=== PATIENT | male | born 1955 | race Caucasian/White ===

== ENCOUNTER → 2024-05-14 | Outpatient (CLI) | payer SELFPAY ==
[2024-05-14 15:09] LABS: Absolute Lymphocyte Count 1.56 X10^3/uL (0.83-4.51); Basophil# 0.03 X10^3/uL; Basophil% 0.5 % (0-1); Eosinophil# 0.13 X10^3/uL; Eosinophils% 2.1 % (0-5); Hematocrit 38.5 % (40-54); Hemoglobin 12.3 g/dL (13.0-16.5); Lymphocyte # 1.56 X10^3/ul (0.83-4.51); Lymphocyte % 24.8 % (19-41); Mean Corp Hgb Conc 31.9 g/dL (32-36); Mean Corpuscular Hgb 27.2 pg (27.0-32.0); Mean Corpuscular Volume 85.2 fL (80-94); Mean Platelet Vol. 10.6 fl (6.2-12.0); Monocyte# 0.58 X10^3/uL; Monocyte% 9.2 % (0-10); NRBC Flagged by Analyzer 0 % (0-5); Neutrophil # 3.97 X10^3/uL (2.7-7.7); Neutrophil % 63.2 % (47-70); Platelet Count 236 K/mm3 (150-450); RBC Distribution Width CV 14.7 % (11.6-14.6); Red Blood Count 4.52 M/mm3 (4.6-6.2); White Blood Count 6.3 K/mm3 (4.4-11.0)
[2024-05-14 15:19] LABS: Erythrocyte Sedimentation Rate 9 mm/hr (0-20)
[2024-05-14 18:03] LABS: CRP < 3.00 mg/L (0.0-3.0)
== END | disposition home or self-care (01) ==
PROVIDERS: PCP Physician Assistant; Referring Provider Specialist; Visit Provider Specialist
DX: T84.023A Instability of internal left knee prosthesis, initial encounter (principal); E11.9 Type 2 diabetes mellitus without complications; I10 Essential (primary) hypertension
CPT/HCPCS: 36415; 85025; 85652; 86140

== ENCOUNTER → 2024-05-16 | Outpatient (CLI) | payer SELFPAY ==
--- NOTE | 2024-05-16 09:15 | EKG12_ITS ---
Test Reason : PRE OP Blood Pressure : */* mmHG Vent. Rate : 64 BPM Atrial Rate : 64 BPM P-R Int : 200 ms QRS Dur : 138 ms QT Int : 446 ms P-R-T Axes : 9 88 37 degrees QTcB Int : 460 ms Normal sinus rhythm Right bundle branch block Abnormal ECG Confirmed by ANTONIO WU, CLARITA ([id number]), editor house organ YURI MORA ([id number]) on 05/16/2024 12:45:32 PM Referred By: Dedrick Taylor Confirmed By: CLARITA ALVAREZ MD
[2024-05-16 10:25] LABS: Basophil# 0.05 X10^3/uL; Basophil% 0.8 % (0-1); Eosinophil# 0.12 X10^3/uL; Eosinophils% 1.9 % (0-5); Hematocrit 38.7 % (40-54); Hemoglobin 12.4 g/dL (13.0-16.5); Lymphocyte % 21.6 % (19-41); Mean Corpuscular Hgb 27.2 pg (27.0-32.0); Mean Corpuscular Volume 84.9 fL (80-94); Mean Platelet Vol. 10.5 fl (6.2-12.0); Monocyte# 0.88 X10^3/uL; Monocyte% 13.6 % (0-10); NRBC Flagged by Analyzer 0 % (0-5); Neutrophil # 4.01 X10^3/uL (2.7-7.7); Neutrophil % 61.8 % (47-70); Platelet Count 243 K/mm3 (150-450); RBC Distribution Width CV 14.8 % (11.6-14.6); RBC Distribution Width SD 45.2 fl (35.1-43.9); Red Blood Count 4.56 M/mm3 (4.6-6.2); White Blood Count 6.5 K/mm3 (4.4-11.0)
[2024-05-16 11:05] LABS: Albumin, Serum 4.1 g/dL (3.4-4.8); Anion Gap 10 (5-15); BUN 19 mg/dL (4-19); Calcium,Total 8.9 mg/dL (7.6-11.0); Carbon Dioxide 24.5 mmol/L (21.0-32.0); Chloride 104 mmol/L (98-108); Creatinine, Serum 0.95 mg/dL (0.70-1.20); EST Glomerular Filtration Rate 88 (>60); Glucose 105 mg/dL (70-99); Sodium Level 138 mmol/L (133-145)
== END | disposition home or self-care (01) ==
LOC: PSN 09:14
PROVIDERS: PCP Physician Assistant; Referring Provider Specialist; Visit Provider Specialist
DX: T84.023A Instability of internal left knee prosthesis, initial encounter (principal)
CPT/HCPCS: 36415; 80048; 82040; 83036; 85025; 93005

== ENCOUNTER 2024-06-12 11:36 | Day surgery (SDC) | payer SELFPAY ==
[2024-06-12] VITALS (10 sets, daily range): BP systolic 138–168; BP diastolic 74–97; PULSE 60–72; RESP 16–18; TEMP 36.6–37.1; O2SAT 84–96; BMI 32.3
--- NOTE | 2024-06-12 11:30 | PCM.HP.BLA ---
History and Physical 06/12/24? [facility]? Abdoulaye Meek? : 1955 Sex: M? Age: 68 years? History and Physical [facility] Surgery: Left knee irrigation and debridement with revision left total knee arthroplasty with polyethylene exchange Surgery date: June 12, 2024 Surgeon: Dr. Dedrick Taylor Subjective? Dictating on a patient of Dedrick Taylor.? This is a 68-year-old male who recently underwent an outpatient left knee polyethylene exchange and lateral patellar facetectomy due to instability on May 29, [address] [facility].? Patient was overall doing very well.? This morning on June 12, 2024 he was walking out to his chicken coup without ambulatory assistance when he tripped on a wire falling forward landing on his left knee.? Patient fell into the chicken coup.? The proximal knee incision dehisced and patient called into our office.? He was seen this morning due to the wound dehiscence.? Patient was doing very well with 0/10 pain.? He was using occasional Tylenol and still using his meloxicam.? He had already finished physical therapy and was doing home exercises.? Patient has medical history pertinent for type 2 diabetes mellitus, hypertension, sleep apnea, anxiety/depression.? There is been no change in medical history since his last surgery.? No recent chest pain or shortness of breath.? He denies past history of DVT or pulmonary embolism.? He is still currently taking the aspirin postoperatively for DVT prophylaxis.? Patient's initial left total knee arthroplasty was at an outside institution in 2016.? Patient has had prior clearance from the first surgery by [facility].? Recent A1c was 6.0. ? Current Meds: Doxycycline Hyclate 100 mg 1 tablet by mouth twice a day, Cephalexin 500 mg 1 tablet by mouth three times a day, Meloxicam 7.5 mg 1 tablet by mouth twice a day, Escitalopram Oxalate 20 mg 1 by mouth every day, Metformin HCL 500 mg 1 po qdaily, Diltiazem HCL ER 240 mg daily, Multi Vitamin? take one(1) tablet daily., Clorophyll? daily, Vitamin D 50 mcg (1999) 1 by mouth 5 days a week, Aspirin 81 81 mg 1 pill 2x/day by mouth Allergies: NKDA ? Advance Care Plan: No Advance Directives Effective Date: 05/14/2024 Past Medical History: Medical Problems: Diabetes, Hard of Hearing, High Blood Pressure, Sleep Apnea, Depression, anxiety Accidents: fall - (06/12/2024) fell on left total knee arthroplasty opened the incision Surgical Hx: Hernia Repair - 1985 Carpal Tunnel Release LT, Carpal Tunnel Release RT Knee Replacement Lt - 2015 Knee Replacement Rt - 2015 LT Knee Poly Exchange - (05/29/2024) SAW @ [facility] Anesthesia Complications: None Assistive Devices: Cpap, Dentures, Glasses Reviewed and updated - 06/12/2024 at 10:06 am by Kesha Mckeon Family History: Mother: Cancer. Children:9 Brother 1: Cancer. Sister 1: Cancer, High Blood Pressure. Reviewed, no changes - 06/12/2024 at 9:55 am by Britni Darling Social History: Marital: .Occupation: chef.Work Status: Currently Working.Hand Dominance: Left-handed. Personal Habits:? Cigarette Use: Never Smoked Cigarettes.Smokeless Tobacco: Never Used Smokeless Tobacco.E-Cigarette Use: Never used.Alcohol: Denies use.Drug Use: Denies Use.Enjoy Exercising: Daily. Reviewed, no changes - 06/12/2024 at 9:55 am by Britni Darling BMI outside normal limits? YES? NO Patient was counseled and given education for nutritional guidance today or during this calendar year YES? NO? N/A d/t pt unable to stand, in hospice, or under the age of 18 Date: 06/12/2024 Was the patient queried about tobacco behavior? Yes? No Does the patient currently use tobacco? Tobacco Use: Patient has never smoked.Cigarette Use: Never Smoked Cigarettes.Smokeless Tobacco: Never Used Smokeless Tobacco.E-Cigarette Use: Never used. Was the patient counseled about tobacco cessation??? Yes? No Review Of Systems: Constitutional: Denies change in appetite, fever and weight change. Cardiovasular: Denies chest pain, heart murmur and irregular heartbeat. Respiratory: Denies cough, pneumonia, shortness of breath, tuberculosis and wheezing. Gastrointestinal: Denies constipation, diarrhea, heartburn, nausea, rectal itching, bloody stools and vomiting. Musculoskeletal: Reports leg swelling and pain, but denies trouble walking and weakness. Skin: Denies Raynaud's, history of shingles and tattoo. Neurological: Denies ambulatory dysfunction, dizziness, numbness/tingling and tremor. Psychiatric: Denies anxiety, insomnia and stress. Hematologic/Lymphatic: Denies anemia, bleeding/bruising tendency and past transfusion. Reviewed, no changes - 06/12/2024 at 9:55 am by Britni Darling ? PRE-OP EXAM: General appearance: NORMAL? Other: Eyes: Conjunctivae and lids:? NORMAL?? Pupils: ERR Ears, Nose, Mouth, and Throat:? NORMAL?? Other: Inspection of lips, teeth and gums:? NORMAL??? Other: Neck: Examination of neck: no masses noted. Respiratory: Assessment of respiratory effort:? NORMAL??? Other: ? Auscultation of lungs: clear to auscultation no wheezes, rhonchi or rales. Cardiovascular:? Auscultation of heart: regular rate and rhythm, no murmurs, gallops or rubs. SDOH completed?? Yes??? No? N/A under the age of 18, refused, or already completed. SDOH with positive findings??? Yes??? No?? Pt. education given Physical Exam: Ht: 70 5'10 Wt: 232lb Wt Prior: 236lb as of 05/23/24 Wt Dif: -4lb Wt k.235 Wt kg Prior: 107.050 as of 05/23/24 Wt kg Dif: -1.815 BMI: 33.3 BP: 138/86 Pulse: 68 T: 97.6 tympanically T: 36.4C Pain Level: 0 O2SatR: 96 KNEE: GAIT:? Patient is walking with limping gait with use of walker INSPECTION/PALPATION:? On exam of the incision there is wound dehiscence involving 6 cm of the proximal incision.? Remaining salty in the distal two thirds are in place. ROM: Deferred due to the wound dehiscence CALF:? Negative homans sign bilaterally NEURO:? Sensation intact to saphenous, sural, deep/superficial peroneal, and tibial nerve distribution.? Neurovascularly intact. Imaging/Diagnostics: ?? ? Assessment #1: Hx T81.31xA Disruption of external operation (surgical) wound, not elsewhere classified, initial encounter Care Plan:? Therapy? :? Physical Therapy: Eval&Treat/Modalities Assessment #2: Hx T84.023D Instability of internal left knee prosthesis, subsequent encounter Care Plan:? Assessment #3: Hx Z96.652 Presence of left artificial knee joint Care Plan:? Therapy? :? Physical Therapy: Eval&Treat/Modalities Assessment #4: Hx Z47.1 Aftercare following joint replacement surgery Care Plan:? Therapy? :? Physical Therapy: Eval&Treat/Modalities Assessment #5: Hx M17.12 Unilateral primary osteoarthritis, left knee Care Plan:? Assessment #6: Hx E11.9 Type 2 diabetes mellitus without complications Care Plan:? Recommendations:? Diabetes can adversely affect the outcome of all orthopaedic surgeries.? This can also impact bone, soft tissue, ligaments and tendon healing.? It is recommended that a hemoglobin A1C be 7.5? or less for a good outcome.? ? Assessment #7: Hx I10 Essential (primary) hypertension Care Plan:? Recommendations:? Patient was explained that poorly controlled elevated blood pressure, hypertension, can lead to damage to the heart, brain, kidneys, and or eyes.? Hypertension can also damage arteries decreasing blood flow to the extremities, leading to delayed fracture healing and or recovery from tendon or ligament injuries.? Importance of proper blood pressure control and monitoring explained.? Recommended follow-up with their primary care physician as needed.? Blood pressure goal is less than 120/80. Blood pressure medication should be taken routinely including the morning of surgery unless otherwise instructed by their physician.? Patient's with hypertension are at increased risk of using anti-inflammatory medication such as Motrin or Aleve increasing the risk of heart attack or strokes.?? ? Assessment #8: Hx E66.9 Obesity, unspecified Care Plan:? Recommendations:? I discussed with the patient today that obesity has detrimental effects on their orthopaedic disease including an increased load on their joints. We discussed that a weight loss program including both diet and exercise is essential not only to improve their joint health, but their overall health. Such weight loss and exercise will also be beneficial in the face of possible future surgical interventions. Assessment #9: Hx Z71.3 Dietary counseling and surveillance Care Plan:? Assessment #10: Hx Z68.33 Body mass index [BMI] 33.0-33.9, adult Care Plan:? Recommendations:? BMI reviewed: BMI results were discussed with patient.? Patient given options for nutritional counseling.? Impression: 1.? Left knee postsurgical wound dehiscence 2.? Status post left revision total knee arthroplasty with polyethylene exchange 3.? Type 2 diabetes mellitus: Last A1c 6.0 4.? Hypertension 5.? Sleep apnea 6.? Anxiety/depression 7.? Obesity with BMI 33.3 Plan: Dr. Dedrick Taylor and myself did discuss and review with the patient all treatment options including surgical versus nonsurgical options.? I will continue plan established by Dr. Dedrick Taylor.? Due to the acute wound dehiscence we will need to take patient back in for surgery today for irrigation and debridement with polyethylene exchange.? Patient states he last ate at 7:30 AM this morning.? He was advised not to eat or drink the rest of the day.? Patient does wish to proceed with the above-stated procedure.? Potential risks, benefits, and complications of the procedure were discussed in detail including but not limited to , infection, nerve and blood vessel damage, persistent pain, numbness, tingling, paresthesias, blood clot, pulmonary embolism, and requirement for possible further surgery.? The patient expressed full understanding and has no further questions for the doctor.? Patient does agree to proceed with the above-stated procedure and has signed the surgery consent form. The left knee was cleansed with sterile saline.? Compressive Valente wrap with multiple ABDs were placed over the left knee.? He was advised not to do any bending of the left knee.? He will use the walker and weight-bear as tolerate.? Patient will meet with our packing machine inspector.? Plan will be to send the patient over to the hospital immediately after our visit today.? We will repeat lab work prior to surgery.? Plan will be for patient to go home today after surgery.? Patient has all medications from the initial surgery including oxycodone, Tylenol, meloxicam, Zofran, aspirin.? Patient will resume the aspirin tomorrow 81 mg twice daily for 4 weeks postoperatively for DVT prophylaxis. POST-OP MEDICATION PLAN: Pain Medications: Patient will continue with above pain medications including Tylenol, meloxicam, and oxycodone as needed postoperatively.? Patient will be called in to antibiotics which he will take for 2 weeks postoperatively.? The first antibiotic patient will use doxycycline 100 mg take twice daily for 2 weeks postoperatively.? Patient was advised and potential side effects including hypersensitivity to the sunlight and should take appropriate precaution.? The second antibiotic will be cephalexin 500 mg 3 times daily for 2 weeks postoperatively.? Patient was advised to use [id number] probiotic while on these antibiotics.? We discussed the potential for abdominal discomfort.? Recommend probiotic with yogurt as well.? They voiced understanding and agreement.? Patient will be weightbearing as tolerated with a walker postoperatively.? We will have him resume formal physical therapy next week on June 16, 2024. DVT Prophylaxis Plan:? Aspirin 81 mg twice daily for 4 weeks postoperatively.? Denies past history of DVT or pulmonary embolism This dictation was created using voice recognition software. Phonetic and/or grammatical errors may exist. ?
[2024-06-12] MEDS: Lactated Ringers 1,000 ML 999 ML IV (12:15)
[2024-06-12] MEDS: Acetaminophen 500 MG Tablet 1000 MG PO (12:47)
[2024-06-12] MEDS: Celecoxib 200 MG Capsule 400 MG PO (12:48)
[2024-06-12] MEDS: Gabapentin 600 MG Tablet PO (12:48)
[2024-06-12] MEDS: Lactated Ringers 1,000 ML 75 ML IV (12:52)
--- NOTE | 2024-06-12 13:43 | PRE.ANES_ITS ---
ASA Classification* ASA Classification ASA Classification: 3 and E Assessment & Plan Anesthesia* Anesthesia Assessment Anesthesia Assessment: Discussed sedation and/or anesthesia options, risks, benefits, and alternatives with patient/parents/legal guardian/POA. Questions invited. The patient/parents/legal guardian/POA seems to understand and agrees to proceed with anesthesia plan. Reviewed the physical assessment, medical history, allergy history and patient home medications list prior to surgery/procedure/anesthetic and documented any changes. Performed airway and anesthesia risk assessments. Anesthesia Type Anesthesia Type: General History Source History Obtained from:: Patient and Chart Anesthesia Focused Assessment* Temperature: 98.8 F Pulse Rate: 60 Blood Pressure: 142/74 Respiratory Rate: 18 Pulse Ox: 96 Oxygen Delivery Method: Room Air Airway Assessment Mouth opens: >3 cm Mallampati Score: III Teeth Condition: Missing (Missing couple teeth on the bottom. Rest are tight.) and Partial (Patient has upper partial. It will be removed prior to surgery.) Neck Range of motion (ROM): Limited ROM (Slight decrease in extension) Focused Labs Anesthesia Preop lab: CBC WBC 6.5 K/mm3 (4.4-11.0) 05/16/24 09:05/16/24 RBC 4.56 M/mm3 (4.6-6.2) L 05/16/24 09:05/16/24 Hgb 12.4 g/dL (13.0-16.5) L 05/16/24 09: 5 Hct 38.7 % (40-54) L 05/16/24 09:05/16/24 Plt Count 243 K/mm3 (150-450) 05/16/24 09:05/16/24 CHEMISTRY Potassium 4.0 mmol/L (3.3-5.1) 05/16/24 09:05/16/24 Sodium 138 mmol/L (133-145) 05/16/24 09:05/16/24 BUN 19 mg/dL (4-19) 05/16/24 09:05/16/24 Creatinine 0.95 mg/dL (0.70-1.20) 05/16/24 09:05/16/24 Glucose 105 mg/dL (70-99) H 05/16/24 09:05/16/24 COAG Pre-Assessment Diagnosis/Proposed Procedure Planned Operative Procedure(s): LEFT KNEE IRRIGATION AND DEBRIDEMENT WITH REVISION LEFT TOTAL KNEE ARTHOPLASTY WITH POLYETHYLENE EXCHANGE Anesthesia History Anesthesia History - technical applications scientist: Anesthesia History - technical applications scientist Hx Hospitalization No 06/12/24 12:24 Any Problems With Anesthesia No 06/12/24 12:24 Cholinesterase deficiency No 06/12/24 12:24 You/Your Family Experience No 06/12/24 12:24 fever (hyperthermia) with Relationship Recent Exposure to Contagious No 06/12/24 12:34 Disease Does patient have nerve No 06/12/24 12:24 stimulator Patient instructed to have device shut off --Does patient have Pacemaker No 06/12/24 12:34 or ICD? When Was Last Pacemaker Check QUESTION #4 FULL TEXT: You/Your Family Experience fever (hyperthermia) with Anesthesia Last Oral Intake Last Oral intake: Last Oral Intake NPO since 07:30 06/12/24 12:34 Meds taken in AM with sips of Yes 06/12/24 12:34 water? Meds patient instructed to take am of surgery Any additional information?: Yes NPO since: 07:30 (Patient had woodward and eggs at 7:30 AM for breakfast.) Meds taken in AM with sips of water?: Yes PONV PONV - technical applications scientist: PONV - technical applications scientist Female No 06/12/24 12:24 HX of Motion Sickness No 06/12/24 12:24 HX of N/V After Surgery No 06/12/24 12:24 Non-Smoker Yes 06/12/24 12:24 Duration of Surgery greater Yes 06/12/24 12:24 than 60 minutes Number of Risk Factors 2 06/12/24 12:24 PONV Score Moderate Risk 06/12/24 12:24 Height & Weight Height & Weight: Anesthesia: Height & Weight Height 5 ft 11 in 06/12/24 12:34 Weight: 105 kg 06/12/24 12:34 Body Mass Index (BMI) 32.3 06/12/24 12:34 Respiratory Assessment Respiratory Assessment - technical applications scientist: Respiratory Tract Infection Hx - technical applications scientist Hx Respiratory Tract Infection No 06/12/24 12:24 STOP Sleep Apnea STOP Sleep Apnea - technical applications scientist: STOP Sleep Apnea - technical applications scientist Hx Hypertension Yes 06/12/24 12:24 Hx Sleep Apnea Yes 06/12/24 12:24 CPAP Yes 06/12/24 12:24 BIPAP No 06/12/24 12:24 Do you snore loudly (louder than talking or can be heard Do you often feel tired/ fatigued/ sleepy during daytime? Has anyone observed you stop breathing during sleep? STOP Results Positive 06/12/24 12:24 QUESTION #5 FULL TEXT : Do you snore loudly (louder than talking or can be heard through closed doors)? Tobacco Use History Tobacco Use History - technical applications scientist: Tobacco Use History - technical applications scientist Tobacco Use Smoking Status Never smoker 06/12/24 12:24 Hx Tobacco Use No 06/12/24 12:24 Years Smoking Packs Smoked per Day Smoking Cessation Date was within the last 15 years Hx Smoking Cessation Date Hx Smoking Cessation Counseling Hematologic Medial History Hematologic Hx - technical applications scientist: Hematologic Medical Hx - workshop manager Hx of Blood Transfusion No 06/12/24 12:24 Hx of Transfusion in last 3 No 06/12/24 12:24 Months Date of Last Transfusion (if within last 3 months) Ever experience any problems No 06/12/24 12:24 with transfusion(s)? Specify any problems Hx of Preganancy in last 3 N/A 06/12/24 12:24 Months Nurse Filling Out Transfusion [id number] 06/12/24 12:24 & Questions: Date: 06/12/24 06/12/24 12:24 Time: 12:28 06/12/24 12:24 Patient unable to answer at this time (ie. confused, unrespo /Reproduction History /Reproductive History - technical applications scientist: /Reproductive Hx- technical applications scientist Hx Now No 06/12/24 12:24 Gestational Age (in weeks): EDC: Hx Hx Para Hx Section SAB No 06/12/24 12:24 Active Medications Active Medications: Current Medications Generic Name Dose Route Start Last Admin Trade Name Freq PRN Reason Stop Dose Admin Cefazolin Sodium 2 gm/ N/A 20 mls @ 400 mls/hr 06/13/24 12:00 IV 06/13/24 12:02 INTRAOP ONE Lactated Ringer's 1,000 mls @ 75 mls/hr 06/12/24 12:45 06/12/24 12:52 IV 75 mls/hr .[id number] NICKOLAS Administration Insulin Human Lispro 1 - 6 unit 06/12/24 12:00 Insulin Lispro 100 Unit/Ml Insuln.Pen SC Q4H PRN PRN BG>/= 180, SEE PROTOCOL Protocol PFSH Medical History Wears partial dentures Open wound Non-smoker CPAP (continuous positive airway pressure) dependence Sleep apnea Hypertension Home Medications ?Medication ?Instructions ?Recorded ?Last Taken ?Type diltiazem HCl 240 mg 240 mg PO DAILY 06/12/24 07:00 History capsule,extended release 24 hr escitalopram oxalate 10 mg tablet 10 mg PO DAILY 06/1206/12/24 07:00 History metformin 500 mg tablet,extended 1,000 mg PO DAILY 06/12/24 07:00 History release 24 hr paroxetine HCl 20 mg tablet 20 mg PO DAILY 06/12/24 07:00 History Allergy/AdvReac Type Severity Reaction Status Date / Time No Known Allergies Allergy Verified 06/12/24 12:19 Family History no significant family his Surgical History (Updated 06/12/24 @ 13:[address] Neto Evans MD) History of revision of total replacement of left knee joint S/P knee replacement Surgical History no surgical history Social History Smoking Status: Never smoker Review of Systems (Anesthesia) ROS Narrative System reviewed and no additional complaints, except as documented.
[2024-06-12] MEDS: Cefazolin 2 GM in 0.9% Normal Saline (100mL Bag) 100 ML IV (15:50)
[2024-06-12] MEDS: TXA 1000mg in NS100 100ml (IVPB at Incision) 660 MG IV (15:59)
[2024-06-12] MEDS: TXA 1000mg in NS100 100ml (IVPB at Closure) 660 MG IV (16:35)
[2024-06-12] MEDS: JPS (Morphine 10mg/ml) OPERA.SITE (16:47)
--- NOTE | 2024-06-12 16:50 | OP.PCM_ITS ---
Operative Report (Standard) Operative Information Date of Procedure: 06/12/24 Pre-Operative Diagnosis: Left total knee wound traumatic dehiscence Post-Operative Diagnosis: Left total knee traumatic wound dehiscence Surgery/Procedure Performed: Irrigation debridement polyethylene exchange 1 component revision left total knee sequencing machine operator: Yes Conventional Machinist: Nikhil Murcia Tasks completed by nurse practitioner physicians assistant: Other (My physician assistant technician was a vital part of this case, they was important because there was not another skilled set of hands available to their training and aptitude needed for safe and appropriate completion of this case. They were important in appropriate retraction during the case, and protectio) Additional assistant technician?: No Type of Anesthesia: General RN Documented Start/Stop Times: Operation Date: 06/12/24 15:35 Case Time Into Pre-Op 06/12/24 12:22 Anesthesia Start 06/12/24 15:35 Into Room 06/12/24 15:35 Procedure Start 06/12/24 16:05 Procedure End 06/12/24 17:12 Anesthesia End 06/12/24 17:21 Out of Room 06/12/24 17:21 Into Recovery 06/12/24 17:22 Out of Recovery 06/12/24 18:03 Into Phase II Recovery 06/12/24 18:04 Out of Phase II 06/12/24 18:55 Procedure Start Time: 16:05 Procedure Stop Time: 17:21 Select all DRAINS/GRAFTS/IMPLANTS that apply: Prosthetic device Prosthetic device details: [employer] 13 mm size 7 a high flex XL PE polyethylene. Special Medications: Ancef Estimated Blood Loss: 25 mL Fluids Replaced: 1000 L crystalloid Specimen collected: No Description of surgery: 68 yo male history of polyethylene exchange revision TKA 2 weeks ago presents with proximal wound dehiscence after falling directly onto his knee this morning in a chicken coop. Based on wound dehiscence and place of injury we did recommend patient proceed with irrigation debridement polyethylene exchange and repeat wound closure with extended postoperative oral antibiotics. Risks and benefits of the procedure were discussed with the patient including but not limited to blood loss, DVTs, PEs, neurovascular damage, infection, general risk of anesthesia including loss of life. Demonstrated understanding and was able to sign informed consent. On the date of procedure patient'sL lower extremity was marked in the preoperative area. The patient was then taken back to the operating room where the patient was placed on the table in the supine position. All bony prominences were identified a well-padded. Anesthesia assumed control of the C-spine and airway and remained controlled throughout the remainder of the procedure. A tourniquet was placed on the operative thigh and the leg was prepped in a sterile fashion. The surgeon then scrubbed at this time .Upon reentering the room left lower extremity was draped in a standard orthopedic fashion. A timeout was then called and everyone agreed upon the side, the site, the procedure to be performed, patient's identity and antibiotics given. A midline skin incision was made and sharp dissection was taken down through skin subcutaneous tissue and fat. Appropriate flaps were elevated medially and laterally. His arthrotomy was identified and the standard medial parapatellar arthrotomy which had not fully healed was identified and sutures were removed. The patella was subluxed laterally. The standard deep MCL release was done. At this point an synovectomy commenced. Our attention was first turned towards the subpatellar pouch and friable synovium and tissues were debrided. We then directed our attention towards medial lateral gutters were these tissues were adequately debrided. Knee was then flexed up the polyethylene was removed. Once polyethylene was removed we did the remainder of the synovium in the medial and lateral gutters and along the lateral structures and MCL. We then debrided the posterior knee. He had completed our synovectomy and were happy with the joint, 6 L of normal saline were then irrigated throughout the wound with low- pressure lavage and the wound was once again explored. All remaining tissue that was suspicious was seen in the wound was once again irrigated with normal saline. 13 mm HyFlex polyethylene was then opened and put back into place after appropriate trialing. Tourniquet was let down and hemostasis was obtained as well as possible. Once the final components were placed the wound was irrigated with a dilute Betadine solution followed by chlorhexidine solution copiously irrigated with normal saline solution. The wound was closed in a layer johnson fashion using #1 vicryl interrupted sutures for the arthrotomy, we then used #1 strata fix runners proximally and distally for the arthrotomy. 2-0 interrupted Vicryl for the subcuticular layer and 2-0 nylon sutures for final skin closure. A sterile compressive dressing was then placed. The patient was then awakened from anesthesia, transferred to the [facility] and transferred to the PACU for recovery. Post op plan Patient will continue on aspirin DVT prophylaxis for 4 weeks after the surgery. Patient will be placed on 2 weeks of antibiotics prophylactically as his dehi scence occurred in a dirty environment. Patient will commence with physical therapy as previously instructed. Surgical Findings: No gross evidence of infection was appreciated. No significant debris was in the superficial wound. Arthrotomy had not adequately therefore joint was appropriately cleaned out. Complications Complications: No Admit VTE Documentation VTE Present on Admission: No VTE Mechan Device Prophylaxis: SCD's and Thigh High OLGA Hose VTE Pharm Prophylaxis ordered?: Yes
--- NOTE | 2024-06-12 17:27 | PCM.POST.ANE ---
Anesthesia: Postop Eval I Current Vital Signs Temperature: 98 F Pulse Rate: 70 Blood Pressure: 168/75 Respiratory Rate: 18 Pulse Ox: 92 Oxygen Delivery Method: Nasal Cannula Assessment Airway patent: Yes Spontaneous unlabored respirations: Yes Mental status: Awake nausea: No Vomiting: No Anesthesia Complication: No Fluid Hydration Crystalloid volume administer (ml): 1,000 Total IV fluid infused: 1,000 Progress Note Anesthesia document: Postop Eval 1 completed: Yes
--- NOTE | 2024-06-12 17:35 | RAD_ITS ---
PROCEDURE: KNEE 1 OR 2 VIEWS 06/12/2024 REASON FOR EXAM: TKA TECHNIQUE: 2 view(s) of the left knee FINDINGS: Bones: No fracture. No suspicious bone lesion. Joints: Total knee arthroplasty in satisfactory alignment. Effusion: No effusion. Soft tissues: Subcutaneous emphysema consistent with recent surgery. Other: RAD/Knee 1 or 2 Views IMPRESSION: Status post recent total knee arthroplasty. Reading Location: [id number]
[2024-06-12] MEDS: Ketorolac 30 MG/ML Syringe IV (17:53)
[2024-06-12] MEDS: Cefazolin 1 GM/50 ML BAG IV (18:10)
--- NOTE | 2024-06-12 20:39 | POSTOPAN2_ITS ---
Anesthesia Postop Eval I Sum Postop Eval Completion status Anesthesia document: Postop Eval 1 completed: Yes Anesthesia Postop Eval I Summary Anesthesia Postop Eval I Summary: Anesthesia Postop Eval I: Assessment Summary Airway patent Yes 06/12/24 17:27 DIRECT[email or web address] Spontaneous unlabored Yes 06/12/24 17:27 [email or web address] respirations Mental status Awake 06/12/24 17:27 [email or web address] nausea No 06/12/24 17:27 [email or web address] Vomiting No 06/12/24 17:27 [email or web address] Anesthesia Postop Eval I: Fluid Summary Crystalloid volume administer 1,000 06/12/24 17:27 [email or web address] (ml) Colloids volume administered ( ml) Blood Product volume administered (ml) Total IV fluid infused 1,000 06/12/24 17:27 [email or web address] Anesthesia Postop Eval I: Summary Notes Anesthesia Complication No 06/12/24 17:27 [email or web address] Anesthesia Complication Comment: Post-operative progress note Anesthesia: Postop Eval II Evaluation Mental status: Awake and Calm Pain Level: 1 nausea: No Vomiting: No Complications Anesthesia Complication: No
--- NOTE | 2024-06-12 20:39 | PCM.POSTANE2 ---
Anesthesia Postop Eval I Sum Postop Eval Completion status Anesthesia document: Postop Eval 1 completed: Yes Anesthesia Postop Eval I Summary Anesthesia Postop Eval I Summary: Anesthesia Postop Eval I: Assessment Summary Airway patent Yes 06/12/24 17:27 [email or web address] Spontaneous unlabored Yes 06/12/24 17:27 BOX [email or web address] respirations Mental status Awake 06/12/24 17:27 [email or web address] nausea No 06/12/24 17:27 BOX [email or web address] Vomiting No 06/12/24 17:27 [email or web address] Anesthesia Postop Eval I: Fluid Summary Crystalloid volume administer 1,000 06/12/24 17:27 BOX [email or web address] (ml) Colloids volume administered ( ml) Blood Product volume administered (ml) Total IV fluid infused 1,000 06/12/24 17:27 [email or web address] [email or web address] Anesthesia Postop Eval I: Summary Notes Anesthesia Complication No 06/12/24 17:27 [email or web address] Anesthesia Complication Comment: Post-operative progress note Anesthesia: Postop Eval II Evaluation Mental status: Awake and Calm Pain Level: 1 nausea: No Vomiting: No Complications Anesthesia Complication: No
== END 2024-06-12 18:57 | disposition home or self-care (01) ==
LOC: SDC 11:37 → AC 11:38
PROVIDERS: PCP Physician Assistant; Referring Provider Specialist; Visit Provider Specialist
PROC: (CPT 27487; principal; 2024-06-12 15:15)
DX: T81.31XA Disruption of external operation (surgical) wound, not elsewhere classified, initial encounter (principal); E11.9 Type 2 diabetes mellitus without complications; T84.023A Instability of internal left knee prosthesis, initial encounter; W01.0XXA Fall on same level from slipping, tripping and stumbling without subsequent striking against object, initial encounter; M17.12 Unilateral primary osteoarthritis, left knee; Z68.33 Body mass index [BMI] 33.0-33.9, adult; Z96.653 Presence of artificial knee joint, bilateral; E66.9 Obesity, unspecified; I10 Essential (primary) hypertension; F32.A Depression, unspecified; F41.9 Anxiety disorder, unspecified; Z71.3 Dietary counseling and surveillance; Z79.84 Long term (current) use of oral hypoglycemic drugs; Z79.899 Other long term (current) drug therapy
CPT/HCPCS: 27486; 01402; 73560; C1776; J2405

== ENCOUNTER → 2024-07-09 | Outpatient (CLI) | payer SELFPAY ==
[2024-07-09 15:03] LABS: Body Fluid Mononuclear WBC # 1.354 10^3/uL; Body Fluid Mononuclear WBC % 9.9 %; Body Fluid Polynuclear WBC # 12.394 10^3/uL; Body Fluid Polynuclear WBC % 90.1 %
[2024-07-09 15:09] LABS: Body Fluid Total Cells Counted 14.932 10^3/ul; White Blood Count/Body Fluid 14.916 10^3/uL
[2024-07-09 21:06] LABS: Auto B Fluid Analyzer BKGD Ct COUNTS W/IN LIMITS (W/IN LIMITS)
[2024-07-09 21:08] LABS: Appearance/Body Fluid TURBID; Color/Body Fluid RED
[2024-07-09 21:09] LABS: Body Fluid QC Type(s) 0514:BF3
[2024-07-09 21:10] LABS: Lymphocytes 7 %; Monocytes 19 %; Neutrophil (Segs) 74 %
[2024-07-09 21:12] LABS: Source- Body Fluid OTHER
[2024-07-15 13:15] LABS: Pathologist Comment/Body Fluid Reviewed
== END | disposition home or self-care (01) ==
LOC: LABSPEC 12:27
PROVIDERS: PCP Physician Assistant; Referring Provider Specialist; Visit Provider Specialist
DX: Z96.652 Presence of left artificial knee joint (principal); T81.33XD Disruption of traumatic injury wound repair, subsequent encounter; T81.31XD Disruption of external operation (surgical) wound, not elsewhere classified, subsequent encounter
CPT/HCPCS: 87015; 87070; 87075; 87077; 87101; 87116; 87186; 87205; 87206; 89050

== ENCOUNTER 2024-07-11 20:03 | Inpatient (IN) | payer OTHER, SELFPAY ==
[2024-07-11 20:04] VITALS: BP 182/88; PULSE 80; RESP 15; TEMP 36.2; O2SAT 97; BMI 29.7
--- NOTE | 2024-07-11 20:17 | ED.VIS.LOWEX ---
HPI <VERA Parker - Last Filed: 07/11/24 22:02> History of Present Illness Chief Complaint: Lower Extremity Injury Narrative Narrative: 60-year-old male with PMH of HTN, prediabetes was sent in by Dr. Taylor/orthopedics for a postop left knee infection. He had a left knee replacement 12 years ago. He had surgery on 05/29/24 to replace the spacer component (polyethelene exchange). He fell 2 weeks later had traumatic wound dehiscence and had a follow-up surgery on 06/12 for washout and repeat spacer exchange. Since then he has had redness and swelling of his knee but states he can ambulate and does not have significant pain. He took 3 weeks of doxycycline and 10 days of Augmentin and it is not improving so he was sent in for IV antibiotics with surgery planned tomorrow with Dr. Taylor. He denies fever or chills. PFSH <VERA Parker - Last Filed: 07/11/24 22:02> PFSH Medical History Wears partial dentures Open wound Non-smoker CPAP (continuous positive airway pressure) dependence Sleep apnea Hypertension Home Medications ?Medication ?Instructions ?Recorded ?Last Taken ?Type diltiazem HCl 240 mg 240 mg PO DAILY blood pressure 06/12/24 07/11/24 History capsule,extended release 24 hr escitalopram oxalate 10 mg tablet 20 mg PO DAILY antidepressant 06/12/24 07/11/24 History metformin 500 mg tablet,extended 500 mg PO DAILY diabetes 06/12/24 07/11/24 History release 24 hr amoxicillin-pot clavulanate 1 tab PO Q12H antibiotic 07/11/24 07/11/24 History Allergy/AdvReac Type Severity Reaction Status Date / Time No Known Allergies Allergy Verified 07/11/24 20:04 Family History no significant family his Surgical History History of revision of total replacement of left knee joint S/P knee replacement Social History Smoking Status: Never smoker ROS <VERA Parker - Last Filed: 07/11/24 22:02> ROS ED ROS Narrative Constitutional: Negative for fever, chills, malaise. CVS: Negative for chest pain. Respiratory: Negative for shortness of breath. Neuro: Negative for motor/sensory dysfunction. Musc: Positive for left knee pain and swelling. EXAM <VERA Parker - Last Filed: 07/11/24 22:02> Physical Exam Narrative Exam Narrative: CONST: Patient sitting in no acute distress. EYES: Normal inspection. NECK: Normal inspection. RESP: No respiratory distress, CTAB. CVS: Regular rate and rhythm, no murmur, no gallop. SKIN: Color normal, no rash, warm, dry, intact. EXTREMITIES: Left knee swollen, erythematous, warm to touch. Midline incision is healed without dehiscence there is a pinpoint area over the mid patella that seep serosanguineous fluid. No lymphangitic streaking. Full range of motion of the knee without significant pain. Soft compartments, 2+ DP pulse. NEURO: Alert and answering questions appropriately. PSYCH: Normal affect. Const Vital Signs: 07/11/24 20:04 07/11/24 20:04 07/11/24 21:09 Temperature 97.2 F L 97.2 F L 97.2 F L Temperature Source Temporal Temporal Temporal Pulse Rate 80 80 72 Respiratory Rate 15 15 20 H Blood Pressure 182/88 H 182/88 H 145/85 H Blood Pressure Mean 119 119 105 Pulse Ox 97 97 95 Oxygen Delivery Method Room Air Room Air Room Air 07/11/24 21:36 07/11/24 22:00 07/11/24 22:00 Temperature 98.9 F 97.6 F L Temperature Source Oral Pulse Rate 73 70 70 Respiratory Rate 18 18 18 Blood Pressure 151/83 H 146/101 H 146/101 H Blood Pressure Mean 105 116 116 Pulse Ox 97 98 98 Oxygen Delivery Method Room Air Room Air <Dr. Elia Lennon DO - Last Filed: 07/11/24 23:11> Physical Exam Const Vital Signs: 07/11/24 20:04 07/11/24 20:04 07/11/24 21:09 Temperature 97.2 F L 97.2 F L 97.2 F L Temperature Source Temporal Temporal Temporal Pulse Rate 80 80 72 Respiratory Rate 15 15 20 H Blood Pressure 182/88 H 182/88 H 145/85 H Blood Pressure Mean 119 119 105 Pulse Ox 97 97 95 Oxygen Delivery Method Room Air Room Air Room Air 07/11/24 21:36 07/11/24 22:00 07/11/24 22:00 Temperature 98.9 F 97.6 F L Temperature Source Oral Pulse Rate 73 70 70 Respiratory Rate 18 18 18 Blood Pressure 151/83 H 146/101 H 146/101 H Blood Pressure Mean 105 116 116 Pulse Ox 97 98 98 Oxygen Delivery Method Room Air Room Air [facility] <VERA Parker - Last Filed: 07/11/24 22:02> [facility] Narrative Medical decision making narrative: 68-year-old male sent in by orthopedics for postop left knee infection that is failed outpatient antibiotics. He appears well and nontoxic. Afebrile and hemodynamically stable. Left knee is swollen, red, warm and slightly tender to touch. There are some clear serosanguineous drainage but no dehiscence or purulence. He has full range of motion and is neurovascularly intact. WBC is 9.3. Hemoglobin 10.3. Normal electrolytes. Glucose 110. Inflammatory markers are elevated. Blood cultures were drawn and he was given broad-spectrum antibiotics with IV vancomycin and Zosyn. Dr. Taylor plans on surgery tomorrow and requested admission to the medical team. I discussed with the hospitalist who states the orthopedic team should admit. He was admitted under the orthopedic team a month ago when he had postop complications. I paged Dr. Taylor. Lab Data Attestation: I reviewed the patient's lab results. Labs: Laboratory Results - last 24 hr 07/11/24 20:27 WBC 9.3 RBC 3.90 L Hgb 10.3 L Hct 32.4 L MCV 83.1 MCH 26.4 L MCHC 31.8 L RDW Std Deviation 46.7 H RDW Coeff of Jr 15.5 H Plt Count 412 MPV 9.6 Immature Gran % (Auto) 0.300 Neut % (Auto) 67.1 Lymph % (Auto) 20.8 Merrick % (Auto) 10.0 Eos % (Auto) 1.5 Baso % (Auto) 0.3 Absolute Neuts (auto) 6.2 Absolute Lymphs (auto) 1.93 Nucleated RBC % 0 ESR 49 H Sodium 138 Potassium 4.3 Chloride 104 Carbon Dioxide 23.2 Anion Gap 11 BUN 29 H Creatinine 1.15 Estim Creat Clear Calc 72.89 Est GFR (MDRD) Non-Af 69 BUN/Creatinine Ratio 24.8 H Glucose 110 H Lactic Acid < 1.0 Calcium 8.7 C-React Prot Ext Range 66.50 H <Dr. Elia Lennon, DO - Last Filed: 07/11/24 23:11> [facility] MDM Narrative Medical decision making narrative: 68-year-old male sent in by orthopedics for postop left knee infection that is failed outpatient antibiotics. He appears well and nontoxic. Afebrile and hemodynamically stable. Left knee is swollen, red, warm and slightly tender to touch. There are some clear serosanguineous drainage but no dehiscence or purulence. He has full range of motion and is neurovascularly intact. WBC is 9.3. Hemoglobin 10.3. Normal electrolytes. Glucose 110. Inflammatory markers are elevated. Blood cultures were drawn and he was given broad-spectrum antibiotics with IV vancomycin and Zosyn. Dr. Taylor plans on surgery tomorrow and requested admission to the medical team. I discussed with the hospitalist who states the orthopedic team should admit. He was admitted under the orthopedic team a month ago when he had postop complications. I paged Dr. Taylor. Dr. Moreau noted he would like assistance with antibiotic choice and further medical needs. Discussed with Dr. Rogers agreed to meet the patient to medicine. ED attending note: I evaluated the patient in conjunction with the ODILON. I agree with his/her statements and above findings. I have personally performed a face to face assessment of the patient and have reviewed the ODILON Note. I performed a substantive portion of the visit including all aspects of the following. I personally saw the patient performed chart review, physical exam, reviewed labs, imaging (if obtained), and formulated a treatment and management plan. This note was generated with [employer] dictation software. It may contain incorrect words, spelling, and punctuation that were not noted in review of the chart prior to signing. Lab Data Labs: Laboratory Results - last 24 hr 07/11/24 20:27 WBC 9.3 RBC 3.90 L Hgb 10.3 L Hct 32.4 L MCV 83.1 MCH 26.4 L MCHC 31.8 L RDW Std Deviation 46.7 H RDW Coeff of Jr 15.5 H Plt Count 412 MPV 9.6 Immature Gran % (Auto) 0.300 Neut % (Auto) 67.1 Lymph % (Auto) 20.8 Merrick % (Auto) 10.0 Eos % (Auto) 1.5 Baso % (Auto) 0.3 Absolute Neuts (auto) 6.2 Absolute Lymphs (auto) 1.93 Nucleated RBC % 0 ESR 49 H Sodium 138 Potassium 4.3 Chloride 104 Carbon Dioxide 23.2 Anion Gap 11 BUN 29 H Creatinine 1.15 Estim Creat Clear Calc 72.89 Est GFR (MDRD) Non-Af 69 BUN/Creatinine Ratio 24.8 H Glucose 110 H Lactic Acid < 1.0 Calcium 8.7 C-React Prot Ext Range 66.50 H Discharge Plan Dx/Rx/DC Orders Clinical Impression: Postoperative infection of knee Disposition Disposition: Acute Care Hospital [facility] Discharge Date/Time: 07/11/24 22:46
[2024-07-11] MEDS: Piperacil/Tazobactam 3.375 GM in 0.9% Normal Saline (50mL MB+) 50 ML IV (20:54)
[2024-07-11 20:59] LABS: Anion Gap 11 (5-15); BUN 29 mg/dL (4-19); BUN/Creat Ratio 24.8 RATIO (10-20); Calcium,Total 8.7 mg/dL (7.6-11.0); Carbon Dioxide 23.2 mmol/L (21.0-32.0); Chloride 104 mmol/L (98-108); Creatinine, Serum 1.15 mg/dL (0.70-1.20); EST Glomerular Filtration Rate 69 (>60); Estimated Creatinine Clearance 72.89 ml/min (50-250); Glucose 110 mg/dL (70-99); Potassium 4.3 mmol/L (3.3-5.1); Sodium Level 138 mmol/L (133-145)
[2024-07-11 21:09] VITALS: BP 145/85; PULSE 72; RESP 20; TEMP 36.2; O2SAT 95
[2024-07-11 21:17] LABS: Absolute Lymphocyte Count 1.93 X10^3/uL (0.83-4.51); Absolute Neutrophil Count 6.2 X10^3/uL (2.0-7.7); Basophil# 0.03 X10^3/uL; Basophil% 0.3 % (0-1); Eosinophil# 0.14 X10^3/uL; Eosinophils% 1.5 % (0-5); Hematocrit 32.4 % (40-54); Hemoglobin 10.3 g/dL (13.0-16.5); Lymphocyte # 1.93 X10^3/ul (0.83-4.51); Lymphocyte % 20.8 % (19-41); Mean Corp Hgb Conc 31.8 g/dL (32-36); Mean Corpuscular Hgb 26.4 pg (27.0-32.0); Mean Corpuscular Volume 83.1 fL (80-94); Mean Platelet Vol. 9.6 fl (6.2-12.0); Monocyte# 0.93 X10^3/uL; NRBC Flagged by Analyzer 0 % (0-5); Neutrophil # 6.22 X10^3/uL (2.7-7.7); Neutrophil % 67.1 % (47-70); Platelet Count 412 K/mm3 (150-450); RBC Distribution Width CV 15.5 % (11.6-14.6); RBC Distribution Width SD 46.7 fl (35.1-43.9); White Blood Count 9.3 K/mm3 (4.4-11.0)
[2024-07-11 21:23] LABS: Erythrocyte Sedimentation Rate 49 mm/hr (0-20)
[2024-07-11 21:28] LABS: Lactic Acid < 1.0 mmol/L (0.0-2.0)
[2024-07-11] MEDS: Vancomycin HCl 2,000 MG in 0.9% Normal Saline (500mL Bag) 500 ML 250 MG IV (21:33)
[2024-07-11 21:36] VITALS: BP 151/83; PULSE 73; RESP 18; TEMP 37.2; O2SAT 97
[2024-07-11 22:00] VITALS: BP 146/101; PULSE 70; RESP 18; TEMP 36.4; O2SAT 98
--- NOTE | 2024-07-11 22:26 | PCM.HP.STD ---
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 He had a knee replacement 12 years ago, and had a repeat surgery to replace the spacer component on 05/29/2024, unfortunately had a fall 2 weeks later leading to wound dehiscence and a follow-up surgery for washout and repeat spacer exchange on 06/12/2024. Since then he has been noticing progressive redness and swelling of his knee that has not responded to 3 weeks of doxycycline and Augmentin. For the suspected processes infection he is planned for surgery tomorrow. Orthopedics team insisted on admission to internal medicine given his prior history of hypertension and need for IV antibiotics. At the time of presentation in the ED he was afebrile With blood pressure of 182/88, pulse 97 on room air, WBC 9.3, hemoglobin 10.3, platelet count 412, BUN 29, creatinine 1.1, glucose of 110, CRP of 66.5. [facility] Medical History (Updated 07/11/24 @ 21:22 by VERA Parker) Wears partial dentures Open wound Non-smoker CPAP (continuous positive airway pressure) dependence Sleep apnea Hypertension Home Medications ?Medication ?Instructions ?Recorded ?Last Taken ?Type diltiazem HCl 240 mg 240 mg PO DAILY 06/12/24 06/12/24 07:00 History capsule,extended release 24 hr escitalopram oxalate 10 mg tablet 20 mg PO DAILY 06/12/24 06/12/24 07:00 History metformin 500 mg tablet,extended 500 mg PO DAILY 06/12/24 06/12/24 07:00 History release 24 hr amoxicillin-pot clavulanate 1 tab PO Q12H 07/11/24 Unknown History Allergy/AdvReac Type Severity Reaction Status Date / Time No Known Allergies Allergy Verified 07/11/24 20:04 Family History no significant family his Surgical History History of revision of total replacement of left knee joint S/P knee replacement Social History Smoking Status: Never smoker ROS Review of Systems ROS Unobtainable: Denies due to encephalopathy, due to endotracheal tube, due to mental condition, due to mental status or other Constitutional Constitutional: Denies anorexia, change in weight, chills, fatigue, fever(s), malaise, night sweats, weakness or other Eyes Eyes: Denies blurry vision, change in eye color, change in vision, discharge from eye(s), double vision, erythema, eye pain, loss of vision or other ENT HEENT: Denies abnormal hearing, dysphagia, ear pain, epistaxis, headache(s), hearing loss, nasal congestion, nasal discharge, post nasal drip, sinus pressure, sore throat or other Cardiovascular Cardiovascular: Denies chest pain, claudication, dyspnea on exertion, edema, lightheadedness, orthopnea, palpitations, paroxysmal nocturnal dyspnea, rapid heart rate, syncope or other Respiratory/Chest Respiratory/Chest: Denies cough, dyspnea, excessive phlegm production, hemoptysis, productive cough, shortness of breath at rest, shortness of breath with exertion, wheezing or other Gastrointestinal Gastrointestinal: Denies abdominal pain, coffee ground emesis, constipation, diarrhea, dyspepsia, hematemesis, hematochezia, loose stools, melena, nausea, vomiting or other Genitourinary Genitourinary: Denies burning urination, difficulty urinating, dysuria, hematuria, nocturia, urinary frequency, urinary hesitancy, urinary incontinence, urinary urgency or other Musculoskeletal Musculoskeletal: Reports joint pain, joint stiffness and joint swelling Neurologic Neurologic: Denies abnormal gait, abnormal speech, confusion, disequilibrium, dizziness, focal weakness, headache(s), numbness, paresthesias, seizure-like activity, seizures, syncope, tingling, tremor(s) or other Psychiatric Psychiatric: Denies anxiety, depression, homicidal ideation, suicidal ideation or other Endocrine Endocrinology: Denies change in body appearance, cold intolerance, excessive sweating, heat intolerance, polydipsia, polyuria or other Hematologic/Lymphatic Hematologic/Lymphatic: Denies anemia, easy bleeding, easy bruising, lymphadenopathy or other Allergic/Immunologic Allergic/Immunologic: Denies rhinitis, hives, eczemia, asthma or other Vital Signs Vital Signs Vital Signs: 07/11/24 20:04 07/11/24 20:04 07/11/24 21:09 Temperature 97.2 F L 97.2 F L 97.2 F L Temperature Source Temporal Temporal Temporal Pulse Rate 80 80 72 Respiratory Rate 15 15 20 H Blood Pressure 182/88 H 182/88 H 145/85 H Blood Pressure Mean 119 119 105 Pulse Ox 97 97 95 Oxygen Delivery Method Room Air Room Air Room Air 07/11/24 21:36 07/11/24 22:00 07/11/24 22:00 Temperature 98.9 F 97.6 F L Temperature Source Oral Pulse Rate 73 70 70 Respiratory Rate 18 18 18 Blood Pressure 151/83 H 146/101 H 146/101 H Blood Pressure Mean 105 116 116 Pulse Ox 97 98 98 Oxygen Delivery Method Room Air Room Air Weight Weight: 213 lb Body Mass Index (BMI) 29.7 Physical Exam Const alert, oriented x3, no apparent distress and average body habitus HEENT normocephalic, head/scalp atraumatic and hearing grossly normal bilaterally Eyes PERRL Neck no lymphadenopathy and supple Resp normal respiratory effort and no retractions Cardio regular rate and regular rhythm GI normal to inspection, nondistended, normoactive bowel sounds Extremity Extremity Narrative: Left knee swelling, no erythema and tenderness present locally. Psych affect normal Results Medical Records Data Attestation: I reviewed the patient's medical records Lab / Micro Data 07/11/24 20:27 07/11/24 20:27 Labs: Laboratory Results - last 24 hr 07/11/24 20:27: WBC 9.3, RBC 3.90 L, Hgb 10.3 L, Hct 32.4 L, MCV 83.1, MCH 26.4 L, MCHC 31.8 L, RDW Std Deviation 46.7 H, RDW Coeff of Jr 15.5 H, Plt Count 412, MPV 9.6, Immature Gran % (Auto) 0.300, Neut % (Auto) 67.1, Lymph % (Auto) 20.8, [place] % (Auto) 10.0, Eos % (Auto) 1.5, Baso % (Auto) 0.3, Absolute Neuts (auto) 6.2, Absolute Lymphs (auto) 1.93, Nucleated RBC % 0, ESR 49 H, Sodium 138, Potassium 4.3, Chloride 104, Carbon Dioxide 23.2, Anion Gap 11, BUN 29 H, Creatinine 1.15, Estim Creat Clear Calc 72.89, Est GFR (MDRD) Non-Af 69, BUN/Creatinine Ratio 24.8 H, Glucose 110 H, Lactic Acid < 1.0, Calcium 8.7, C-React Prot Ext Range 66.50 H Assessment & Plan Assessment/Plan (1) Postoperative infection of knee: PLAN: Plan 68-year-old hold with history of hypertension, prediabetes, depression is being admitted to the hospital for prosthetic knee infection and plan for surgery tomorrow. #Postop left knee infection - Continue Vanco Zosyn - Plan for surgery in the morning - N.p.o. after midnight - Enoxaparin 40 mg subcu for DVT prophylaxis after the surgery - Follow-up on synovial fluid pathology report #Elevated BUN - IV normal saline 100 mL/h for 5 hours improve hydration status #Hypertension - continue home diltiazem to 40 mg p.o. daily #Mood disorder - Continue escitalopram 20 mg daily #Prediabetes -Hold metformin for now #DVT - Prophylactic anticoagulation after surgery # Code: Full code
[2024-07-11 22:52] VITALS: BMI 32.3
--- NOTE | 2024-07-11 22:52 | PCM.RX.CS ---
Consult Antibiotic Management Pharmacy has been consulted to manage selected antibiotic: Vancomycin Type of Intervention Type of Consult: New start Labs Labs: Sodium 138 mmol/L (133-145) 07/11/24 20:27 Potassium 4.3 mmol/L (3.3-5.1) 07/11/24 20:27 Chloride 104 mmol/L (98-108) 07/11/24 20:27 Carbon Dioxide 23.2 mmol/L (21.0-32.0) 07/11/24 20:27 Anion Gap 11 (5-15) 07/11/24 20:27 BUN 29 mg/dL (4-19) H 07/11/24 20:27 Creatinine 1.15 mg/dL (0.70-1.20) 07/11/24 20:27 Est GFR (MDRD) Non-Af 69 (>60) 07/11/24 20:27 BUN/Creatinine Ratio 24.8 RATIO (10-20) H 07/11/24 20:27 Glucose 110 mg/dL (70-99) H 07/11/24 20:27 Dosing Weight Weight used for dosin.6 kg Estimated Creatinine Clearance Estimated Creatinine Clearance: 72.89 Goal Trough Goal Trough: 15-20 mcg/mL Pharmacy Plan for Drug Dosing Pharmacy Plan for Drug Dosing: Pharmacy Service will continue to monitor and adjust dosing as required. 2000MG IN ER @ 2133. START 1500MG Q12H AND DRAW TROUGH PRIOR TO 4TH DOSE Follow-Up Labs Follow-Up Labs: Trough: Vancomycin Date/Time Labs Ordered Labs to be done on [date and time ordered]: 07/13 @ 0900
[2024-07-11 23:12] VITALS: BP 147/73; PULSE 63; RESP 18; TEMP 36.8; O2SAT 96
[2024-07-11] MEDS: 0.9% Normal Saline (1000mL) 1,000 ML 100 ML IV (23:44)
[2024-07-12] VITALS (15 sets, daily range): BP systolic 114–177; BP diastolic 67–110; PULSE 66–95; RESP 16–18; TEMP 36.1–36.6; O2SAT 93–100; BMI 32.3
[2024-07-12 05:15] LABS: Absolute Lymphocyte Count 1.75 X10^3/uL (0.83-4.51); Absolute Neutrophil Count 4.6 X10^3/uL (2.0-7.7); Basophil# 0.03 X10^3/uL; Basophil% 0.4 % (0-1); Eosinophil# 0.19 X10^3/uL; Eosinophils% 2.6 % (0-5); Hematocrit 30.7 % (40-54); Hemoglobin 9.7 g/dL (13.0-16.5); Lymphocyte # 1.75 X10^3/ul (0.83-4.51); Mean Corp Hgb Conc 31.6 g/dL (32-36); Mean Corpuscular Hgb 26.5 pg (27.0-32.0); Mean Corpuscular Volume 83.9 fL (80-94); Mean Platelet Vol. 8.9 fl (6.2-12.0); Monocyte# 0.73 X10^3/uL; NRBC Flagged by Analyzer 0 % (0-5); Neutrophil # 4.56 X10^3/uL (2.7-7.7); Neutrophil % 62.7 % (47-70); Platelet Count 352 K/mm3 (150-450); RBC Distribution Width CV 15.4 % (11.6-14.6); RBC Distribution Width SD 46.8 fl (35.1-43.9); Red Blood Count 3.66 M/mm3 (4.6-6.2); White Blood Count 7.3 K/mm3 (4.4-11.0)
[2024-07-12 05:39] LABS: International Normalized Ratio 1.1; Prothrombin Time (Protime)PT. 14.2 SECONDS (11.7-14.9)
[2024-07-12 06:04] LABS: ALB/GLOB Ratio 1.1 RATIO (0.9-2.4); AST(SGOT) 27 U/L (<=37); Alanine Aminotransfer ALT/SGPT 20 U/L (<=46); Albumin, Serum 3.4 g/dL (3.4-4.8); Alkaline Phosphatase 68 U/L (40-129); Anion Gap 11 (5-15); BUN 20 mg/dL (4-19); BUN/Creat Ratio 22.9 RATIO (10-20); Bilirubin, Direct 0.11 mg/dL (0.00-0.30); Calcium,Total 8.4 mg/dL (7.6-11.0); Carbon Dioxide 22.6 mmol/L (21.0-32.0); Chloride 105 mmol/L (98-108); Creatinine, Serum 0.87 mg/dL (0.70-1.20); EST Glomerular Filtration Rate 94 (>60); Estimated Creatinine Clearance 97.93 ml/min (50-250); Globulin 3.1 g/dL (2.2-4.2); Glucose 103 mg/dL (70-99); Magnesium 2.3 mg/dL (1.5-2.2); Phosphorus 3.7 mg/dL (2.7-4.5); Protein, Total 6.5 g/dL (5.9-8.4); Sodium Level 139 mmol/L (133-145); Total Bilirubin 0.25 mg/dL (0.00-1.30)
--- NOTE | 2024-07-12 09:34 | CASEMGMT ---
ROLY ROUSSEAU Assessment: Face to Face with pt for initial transition planning/care coordination assessment. ROLY ROUSSEAU introduced self and role at [facility], pt voices understanding and consents to assessment. Pt is A&O x4 and answers all questions appropriately at this time. Pt lying in bed in no distress with at bedside. Care providers, pharmacy, and demographics verified/updated. Admitting Dx: infected knee prosthesis PCP:Moriah Specialists:adele Taylor Preferred Pharmacy: [facility] Insurance: Self Pay Prescription Benefit: no LNOK: Soni Meek, Living Arrangements: Pt lives with in a two story home with FFSU and 2 steps to enter with a rail. Pt reports he is typically indep in ADL/IADLs and denies concerns at home. Transportation: Pt drives self and denies concerns with transportation. DME:cane, walker, CPAP HHC/SNF: Denies hx of Pt states no concerns with going home at time of dc. Pt to have OR today. Pt states no further concerns/needs. CM to follow. Advised pt to ask CM if any further questions/concerns/needs arise, voices understanding. Pt Goal: Home Plan: TBD pending surgery and course of hospitalization Sara DUNHAM CM
[2024-07-12] MEDS: Vancomycin HCl 1,500 MG in 0.9% Normal Saline (500mL Bag) 500 ML 250 MG IV ×2 (09:52→23:51)
--- NOTE | 2024-07-12 11:46 | CON.PCM.OR_ITS ---
HPI Consult Data Date of Consult: 07/12/24 HPI Narrative Reason for Consultation: Left knee periprosthetic joint infection HPI Narrative: HILL URBINA, is a 68 M who presents today with left knee redness and swelling. Patient initially had a polyethylene exchange on May 29, 2024 for instability was found to have a fractured polyethylene post. Polyethylene exchange was performed at that time patient did well initially. However 14 days after surgery patient fell while collecting eggs in his chicken coop. He was brought to surgery that same day for irrigation debridement polyethylene exchange and repeat closure of the wound. He was placed on doxycycline and Keflex orally postoperatively. Patient presented to his 2-week postoperative visit with some anterior knee swelling and redness which was thought to be likely associated with prepatellar bursa and local skin irritation/reactive erythema. He was maintained on antibiotics during this time. We did aspirate clear fluid and felt this to be in relation to the prepatellar bursa. Patient continued had redness and swelling in the front of his knee eventually we reaspirated the knee and did find he had significant number of white blood cells in the aspirate as well as a high percentage of PMNs. Finally patient did grow Staph epidermidis with positive cultures being noted yesterday. He was called and instructed to go to the emergency department for admission and to begin antibiotics. He was admitted overnight to the medicine service and started on vancomycin and Zosyn. Should be noted the aspirate obtained on Sunday in the office was from the joint itself. Patient reports pain over the anterior knee. He is in minimal pain with range of motion. He is very stoic. [facility] Medical History Wears partial dentures Open wound Non-smoker CPAP (continuous positive airway pressure) dependence Sleep apnea Hypertension Home Medications ?Medication ?Instructions ?Recorded ?Last Taken ?Type diltiazem HCl 240 mg 240 mg PO DAILY blood pressu re 06/12/24 07/11/24 History capsule,extended release 24 hr escitalopram oxalate 10 mg tablet 20 mg PO DAILY antid epressant 06/12/24 07/11/24 History metformin 500 mg tablet,extended 500 mg PO DAILY diabe eleanor 06/12/24 07/11/24 History release 24 hr amoxicillin-pot clavulanate 1 tab PO Q12H antibiotic 0 07/11/24 07/11/24 History diphenhydramine 25 ml PO .HS PRN pain 07/11/24 07/10/24 History mg-acetaminophen 500 mg/15 mL oral solution Allergy/AdvReac Type Severity Reaction Status Date / Time No Known Allergies Allergy Verified 07/11/24 20:04 Surgical History History of revision of total replacement of left knee joint S/P knee replacement Social History Smoking Status: Never smoker ROS ROS Narrative 14 point review of systems outside was mentioned in the HPI is negative Vital Signs Vital Signs Vital Signs: 07/11/24 20:04 07/11/24 20:04 07/11/24 21:09 Temperature 97.2 F L 97.2 F L 97.2 F L Temperature Source Temporal Temporal Temporal Pulse Rate 80 80 72 Pulse Strength Respiratory Rate 15 15 20 H Blood Pressure 182/88 H 182/88 H 145/85 H Blood Pressure Mean 119 119 105 Blood Pressure Source Blood Pressure Position Blood Pressure Location Pulse Ox 97 97 95 Oxygen Delivery Method Room Air Room Air Room Air 07/11/24 21:36 07/11/24 22:00 07/11/24 22:00 Temperature 98.9 F 97.6 F L Temperature Source Oral Pulse Rate 73 70 70 Pulse Strength Respiratory Rate 18 18 18 Blood Pressure 151/83 H 146/101 H 146/101 H Blood Pressure Mean 105 116 116 Blood Pressure Source Blood Pressure Position Blood Pressure Location Pulse Ox 97 98 98 Oxygen Delivery Method Room Air Room Air 07/11/24 23:12 07/12/24 05:49 07/12/24 08:10 Temperature 98.3 F 97 F L 97.3 F L Temperature Source Oral Temporal Temporal Pulse Rate 63 66 67 Pulse Strength Respiratory Rate 18 16 18 Blood Pressure 147/73 H 141/89 H 115/67 Blood Pressure Mean 97 106 83 Blood Pressure Source Monitor Monitor Monitor Blood Pressure Position Semi-Fowlers Semi-Fowlers Semi-Fowlers Blood Pressure Location Right Arm Left Arm Right Arm Pulse Ox 96 98 98 Oxygen Delivery Method Room Air Room Air Room Air 07/12/24 10:46 07/12/24 10:46 Temperature 97.0 F L Temperature Source Temporal Pulse Rate 80 Pulse Strength Normal (2+) Respiratory Rate 18 Blood Pressure 114/87 H Blood Pressure Mean 96 Blood Pressure Source Monitor Blood Pressure Position Semi-Fowlers Blood Pressure Location Right Arm Pulse Ox 94 Oxygen Delivery Method Room Air Weight Weight: 228 lb 2.855 oz Body Mass Index (BMI) 32.3 Physical Exam Const alert, oriented x3 and no apparent distress General Appearance: cooperative HEENT normocephalic and head/scalp atraumatic Eyes PERRL Neck no JVD Resp normal respiratory effort Cardio Cardio Narrative: Regular distal pulse rate Extremity Extremity Narrative: Left lower extremity: Patient has significant swelling over the anterior knee. Erythema over the anterior knee. Anterior knee effusion and swelling. Minimal pain with passive and active range of motion. Incision is clean dry and intact. Stable to varus and valgus stress. Skin Skin Narrative: Anterior erythema at the site of the incision. Neuro CN's II-XII intact bilaterally and moves all extremities Psych affect normal Medical Records Data Attestation: I reviewed the patient's medical records Lab / Micro Data Attestation: I reviewed the patient's lab results. 07/12/24 04:48 07/12/24 04:48 Labs: Laboratory Results - last 24 hr 07/11/24 20:27: WBC 9.3, RBC 3.90 L, Hgb 10.3 L, Hct 32.4 L, MCV 83.1, MCH 26.4 L, MCHC 31.8 L, RDW Std Deviation 46.7 H, RDW Coeff of Jr 15.5 H, Plt Count 412, MPV 9.6, Immature Gran % (Auto) 0.300, Neut % (Auto) 67.1, Lymph % (Auto) 20.8, [place] % (Auto) 10.0, Eos % (Auto) 1.5, Baso % (Auto) 0.3, Absolute Neuts (auto) 6.2, Absolute Lymphs (auto) 1.93, Nucleated RBC % 0, ESR 49 H, Sodium 138, Potassium 4.3, Chloride 104, Carbon Dioxide 23.2, Anion Gap 11, BUN 29 H, Creatinine 1.15, Estim Creat Clear Calc 72.89, Est GFR (MDRD) Non-Af 69, B UN/Creatinine Ratio 24.8 H, Glucose 110 H, Lactic Acid < 1.0, Calcium 8.7, C- React Prot Ext Range 66.50 H 07/12/24 04:48: WBC 7.3, RBC 3.66 L, Hgb 9.7 L, Hct 30.7 L, MCV 83.9, MCH 26.5 L , MCHC 31.6 L, RDW Std Deviation 46.8 H, RDW Coeff of Jr 15.4 H, Plt Count 352, MPV 8.9, Immature Gran % (Auto) 0.300, Neut % (Auto) 62.7, Lymph % (Auto) 24.0, [place] % (Auto) 10.0, Eos % (Auto) 2.6, Baso % (Auto) 0.4, Absolute Neuts (auto) 4.6, Absolute Lymphs (auto) 1.75, Nucleated RBC % 0, PT 14.2, INR 1.1, Sodium 139, Potassium 4.0, Chloride 105, Carbon Dioxide 22.6, Anion Gap 11, BUN 20 H, Creatinine 0.87, Estim Creat Clear Calc 97.93, Est GFR (MDRD) Non-Af 94, B UN/Creatinine Ratio 22.9 H, Glucose 103 H, Calcium 8.4, Phosphorus 3.7, M agnesium 2.3 H, Total Bilirubin 0.25, Direct Bilirubin 0.11, AST 27, ALT 20, Alkaline Phosphatase 68, Total Protein 6.5, Albumin 3.4, Globulin 3.1, Albumin/Globulin Ratio 1.1, TSH 1.250 Cultures show Staph epidermidis with resistance to beta-lactam antibiotics. Assessment & Plan Assessment/Plan (1) Infection of total left knee replacement: PLAN: Patient has left knee periprosthetic joint infection. Patient's workup consistent with acute postoperative infection based on aspiration cell count and inflammatory lab work as well as positive cultures noted from intra-articular aspiration done in the office on Sunday of this week. I did contact the patient last night and recommended that he return to the hospital for urgent irrigation debridement. Risk and benefits of this procedure were discussed the patient including but not limited to blood loss, DVTs, PEs, nervous damage complex, the risk of anesthesia including loss of life. Patient demonstrates understanding and does wish to proceed. Additionally we did discuss potential for two-stage revision however based on acuity of the symptoms the patient's well-functioning knee prior I would recommend and did recommend a polyethylene exchange which patient was agreeable to today. Antibiotics are on-call to the operating room. Antibiotics have been initiated due to previous positive cultures he was felt to begin antibiotics soon as possible.
--- NOTE | 2024-07-12 12:46 | PRE.ANES_ITS ---
ASA Classification* ASA Classification ASA Classification: 3 and E Assessment & Plan Anesthesia* Anesthesia Assessment Anesthesia Assessment: Discussed sedation and/or anesthesia options, risks, benefits, and alternatives with patient/parents/legal guardian/POA. Questions invited. The patient/parents/legal guardian/POA seems to understand and agrees to proceed with anesthesia plan. Reviewed the physical assessment, medical history, allergy history and patient home medications list prior to surgery/procedure/anesthetic and documented any changes. Performed airway and anesthesia risk assessments. Anesthesia Type Anesthesia Type: General (lma) Anesthesia Focused Assessment* Temperature: 97.0 F Pulse Rate: 80 Blood Pressure: 114/87 Respiratory Rate: 18 Pulse Ox: 94 Airway Assessment Mouth opens: >3 cm Mallampati Score: II Focused Labs Anesthesia Preop lab: CBC WBC 7.3 K/mm3 (4.4-11.0) 07/12/24 04:48 07/12/24 RBC 3.66 M/mm3 (4.6-6.2) L 07/12/24 04:48 07/12/24 Hgb 9.7 g/dL (13.0-16.5) L 07/12/24 04:48 07/12/24 Hct 30.7 % (40-54) L 07/12/24 04:48 07/12/24 Plt Count 352 K/mm3 (150-450) 07/12/24 04:48 07/12/24 CHEMISTRY Potassium 4.0 mmol/L (3.3-5.1) 07/12/24 04:48 07/12/24 Sodium 139 mmol/L (133-145) 07/12/24 04:48 07/12/24 Magnesium 2.3 mg/dL (1.5-2.2) H 07/12/24 04:48 07/12/24 Phosphorus 3.7 mg/dL (2.7-4.5) 07/12/24 04:48 07/12/24 BUN 20 mg/dL (4-19) H 07/12/24 04:48 07/12/24 Creatinine 0.87 mg/dL (0.70-1.20) 07/12/24 04:48 07/12/24 Glucose 103 mg/dL (70-99) H 07/12/24 04:48 07/12/24 TSH 1.250 uIU/mL (0.300-4.200) 07/12/24 04:48 06/26 09/19 COAG PT 14.2 SECONDS (11.7-14.9) 07/12/24 04:48 Pre-Assessment Diagnosis/Proposed Procedure Planned Operative Procedure(s): I and D of Left knee with poly exchang Anesthesia History Anesthesia History - count team member: Anesthesia History - count team member Hx Hospitalization No 06/12/24 12:24 Any Problems With Anesthesia No 07/12/24 00:49 Cholinesterase deficiency No 07/12/24 00:49 You/Your Family Experience No 07/12/24 00:49 fever (hyperthermia) with Relationship Recent Exposure to Contagious No 07/12/24 00:49 Disease Does patient have nerve No 07/12/24 00:49 stimulator Patient instructed to have device shut off --Does patient have Pacemaker No 07/12/24 10:46 or ICD? When Was Last Pacemaker Check QUESTION #4 FULL TEXT: You/Your Family Experience fever (hyperthermia) with Anesthesia Last Oral Intake Last Oral intake: Last Oral Intake NPO since 00:00 07/12/24 10:46 Meds taken in AM with sips of No 07/12/24 10:46 water? Meds patient instructed to take am of surgery PONV PONV - count team member: PONV - count team member Female HX of Motion Sickness HX of N/V After Surgery Non-Smoker Duration of Surgery greater than 60 minutes Number of Risk Factors PONV Score Height & Weight Height & Weight: Anesthesia: Height & Weight Height 5 ft 10.5 in 07/12/24 10:46 Weight: 103.5 kg 07/12/24 10:46 Body Mass Index (BMI) 32.3 07/12/24 10:46 Respiratory Assessment Respiratory Assessment - count team member: Respiratory Tract Infection Hx - count team member Hx Respiratory Tract Infection No 07/12/24 00:49 STOP Sleep Apnea STOP Sleep Apnea - count team member: STOP Sleep Apnea - count team member Hx Hypertension Yes 07/11/24 22:52 Hx Sleep Apnea Yes 07/11/24 22:52 CPAP Yes 07/11/24 22:52 BIPAP No 07/11/24 22:52 Do you snore loudly (louder than talking or can be heard Do you often feel tired/ fatigued/ sleepy during daytime? Has anyone observed you stop breathing during sleep? STOP Results Positive 07/11/24 22:52 QUESTION #5 FULL TEXT : Do you snore loudly (louder than talking or can be heard through closed doors)? Tobacco Use History Tobacco Use History - count team member: Tobacco Use History - count team member Tobacco Use Smoking Status Never smoker 07/11/24 22:52 Hx Tobacco Use No 07/11/24 22:52 Years Smoking Packs Smoked per Day Smoking Cessation Date was within the last 15 years Hx Smoking Cessation Date Hx Smoking Cessation Counseling Hematologic Medial History Hematologic Hx - count team member: Hematologic Medical Hx - cellophaner Hx of Blood Transfusion No 07/11/24 22:52 Hx of Transfusion in last 3 No 07/11/24 22:52 Months Date of Last Transfusion (if within last 3 months) Ever experience any problems No 07/11/24 22:52 with transfusion(s)? Specify any problems Hx of Preganancy in last 3 N/A 07/11/24 22:52 Months Nurse Filling Out Transfusion EVIZZO 07/11/24 22:52 & Questions: Date: 07/11/24 07/11/24 22:52 Time: 23:03 07/11/24 22:52 Patient unable to answer at this time (ie. confused, unrespo /Reproduction History /Reproductive History - count team member: /Reproductive Hx- count team member Hx Now Gestational Age (in weeks): EDC: Hx Hx Para Hx Section SAB No 06/12/24 12:24 Active Medications Active Medications: Current Medications Generic Name Dose Route Start Last Admin Trade Name Freq PRN Reason Stop Dose Admin Diltiazem HCl 240 mg 07/12/24 10:00 07/12/24 09:53 Diltiazem Cd 240 Mg Capsule PO Not Given DAILY [facility] Protocol Enoxaparin Sodium 40 mg 07/12/24 10:00 07/12/24 09:53 Enoxaparin 40 Mg/0.4 Ml Syringe SC Not Given DAILY [facility] Escitalopram Oxalate 20 mg 07/12/24 10:00 07/12/24 09:53 Escitalopram Oxalate 20 Mg Tablet PO Not Given DAILY [facility] Vancomycin HCl 1,500 mg/ 530 mls @ 250 mls/hr 07/12/24 09:30 07/12/24 12:00 Sodium Chloride IV Infused Q12H [facility] Infusion Sodium Chloride 250 mls @ 15 mls/hr 07/11/24 22:53 IV .[id number] PRN Saline Flush Sodium Chloride 250 mls @ 15 mls/hr 07/11/24 22:53 IV .[id number] PRN Additional IVPB Infusion Vancomycin IV-PHARMACY TO DOSE 500 mls @ 250 mls/hr 07/11/24 23:00 1 each/ Sodium Chloride IV X1 PRN Rx to Dose Protocol Sodium Chloride 10 - 40 ml 07/11/24 22:53 0.9% Saline Lock 10 Ml Syringe IV UD PRN SALINE FLUSH Vancomycin Protocol 1 lab 07/13/24 08:00 Vancomycin Trough/Random Due [facility] 07/13/24 10:00 DAILY [facility] PFSH Medical History Wears partial dentures Open wound Non-smoker CPAP (continuous positive airway pressure) dependence Sleep apnea Hypertension Home Medications ?Medication ?Instructions ?Recorded ?Last Taken ?Type diltiazem HCl 240 mg 240 mg PO DAILY blood pressu re 06/12/24 07/11/24 History capsule,extended release 24 hr escitalopram oxalate 10 mg tablet 20 mg PO DAILY antid epressant 06/12/24 07/11/24 History metformin 500 mg tablet,extended 500 mg PO DAILY diabe eleanor 06/12/24 07/11/24 History release 24 hr amoxicillin-pot clavulanate 1 tab PO Q12H antibiotic 0 07/11/24 07/11/24 History diphenhydramine 25 ml PO .HS PRN pain 07/11/24 07/10/24 History mg-acetaminophen 500 mg/15 mL oral solution Allergy/AdvReac Type Severity Reaction Status Date / Time No Known Allergies Allergy Verified 07/11/24 20:04 Surgical History History of revision of total replacement of left knee joint S/P knee replacement Social History Smoking Status: Never smoker Review of Systems (Anesthesia) ROS Narrative System reviewed and no additional complaints, except as documented.
--- NOTE | 2024-07-12 13:27 | PCM.OPRPT ---
Operative Report (Standard) Operative Information Date of Procedure: 07/12/24 Pre-Operative Diagnosis: Left knee acute periprosthetic joint infection Post-Operative Diagnosis: Left knee acute periprosthetic joint infection Surgery/Procedure Performed: Left knee irrigation debridement, complete synovectomy 1 component revision polyethylene exchange back shoe operator: Yes Storage Architect: Milly Ball Tasks completed by veterinary technician assistant: Other (See body of operative report) Additional costumer assistant?: No Type of Anesthesia: General RN Documented Start/Stop Times: Operation Date: 07/12/24 12:20 Case Time Anesthesia Start 07/12/24 12:10 Into Room 07/12/24 12:10 Procedure Start 07/12/24 12:37 Procedure End 07/12/24 14:24 Anesthesia End 07/12/24 15:24 Out of Room 07/12/24 15:24 Into Recovery 07/12/24 15:26 Out of Recovery 07/12/24 16:46 Procedure Start Time: 12:37 Procedure Stop Time: 14:24 Select all DRAINS/GRAFTS/IMPLANTS that apply: Prosthetic device Prosthetic device details: [employer] posterior stabilized XL PE High Flexion 7/8 13 mm Special Medications: Vancomycin Estimated Blood Loss: 200 ml Fluids Replaced: 1000 ml Specimen collected: Yes Description of specimen(s) removed: 3 separate specimens were sent to microbiology Description of surgery: 68 yo m history of l TKA revision in 06-12-2024 due to acute postop traumatic wound dehiscence presents with staph epi infection. Reviewed options were discussed the patient. Based on acuity of the symptoms and organism irrigation debridement with polyethylene exchange is recommended. Risks and benefits of the procedure were discussed with the patient including but not limited to blood loss, DVTs, PEs, neurovascular damage, infection, general risk of anesthesia including loss of life. Demonstrated understanding and was able to sign informed consent. On the date of procedure patient's L lower extremity was marked in the preoperative area. The patient was then taken back to the operating room where the patient was placed on the table in the supine position. All bony prominences were identified a well-padded. Anesthesia assumed control of the C-spine and airway and remained controlled throughout the remainder of the procedure. A tourniquet was placed on the operative thigh and the leg was prepped in a sterile fashion. The surgeon then scrubbed at this time .Upon reentering the room left lower extremity was draped in a standard orthopedic fashion. A timeout was then called and everyone agreed upon the side, the site, the procedure to be performed, patient's identity and antibiotics given. A midline skin incision was made and sharp dissection was taken down through skin subcutaneous tissue and fat. Appropriate flaps were elevated medially and laterally. His arthrotomy was identified and the standard medial parapatellar incision was made and the patella was subluxed laterally. The standard deep MCL release was done. At this point an aggressive synovectomy commenced. Our attention was first turned towards the subpatellar pouch and all suspicious synovium and tissues were debrided. We then directed our attention towards medial lateral gutters were these tissues were aggressively debrided. Knee was then flexed up the polyethylene was removed. Once polyethylene was removed we did the remainder of the synovium in the medial and lateral gutters and along the lateral structures and MCL. We then debrided the posterior knee. Knee was flexed up and culture was taken from the femoral notch. And also there was a membrane beneath the tibial baseplate that was removed and sent for culture. He had completed our synovectomy and were happy with the joint. We then used a chlorahexadine scrub sponge and physically scrub the metal implants using a scrub sponge but nothing abrasive. We also scrubbed the remainder of the wound with chlorhexidine. 6 L of normal saline were then irrigated throughout the wound with low-pressure lavage and the wound was once again explored. All remaining tissue that was suspicious was seen in the wound was once again irrigated with normal saline. 13 mm polyethylene was then opened and put back into place after appropriate trialing. Tourniquet was let down and hemostasis was obtained as well as possible. Lateral drain was placed in 1 g of vancomycin powder were placed in the wound/joint. Once the final components were placed the wound was copiously irrigated with normal saline solution. The wound was closed in a layer johnson fashion using #1 vicryl interrupted sutures for the arthrotomy, 2-0 interrupted Vicryl for the subcuticular layer and salty for final skin closure. A sterile compressive dressing was then placed. The patient was then awakened from anesthesia, transferred to the [facility] and transferred to the PACU for recovery. Post op plan Continue on IV vancomycin, follow intraoperative cultures. Consult infectious disease. Knee immobilizer for 2 weeks postoperatively as wound heals. Aspirin 81 mg twice daily for 4 weeks for DVT prophylaxis My physician costumer assistant was a vital part of this case, they was important because there was not another skilled set of hands available to their training and aptitude needed for safe and appropriate completion of this case. They were important in appropriate retraction during the case, and protection of soft tissues during bony cuts. In particular the experience and skill of this costumer assistant made for safe retraction and exposure during implantation of medical implants without damage or fracture to vital soft tissues or structures. His intimate knowledge of the case and my steps aided in safe and expedient completion of the procedure as well as appropriate position of the leg during the case. He was also vital in assisting with closure and placement of the dressing under my direct supervision. Surgical Findings: Gross acute inflammatory synovitis, purulent synovial fluid Complications Complications: No Admit VTE Documentation VTE Present on Admission: No VTE Mechan Device Prophylaxis: SCD's and Thigh High OLGA Hose VTE Pharm Prophylaxis ordered?: Yes
[2024-07-12] MEDS: TXA in NS 100ml (Placed in Wound) OPERA.SITE (13:57)
[2024-07-12] MEDS: Vancomycin 6 GM Powder 1000 MG OPERA.SITE (13:58)
--- NOTE | 2024-07-12 15:20 | PCM.POST.ANE ---
Anesthesia: Postop Eval I Current Vital Signs Temperature: 97.3 F Pulse Rate: 71 Blood Pressure: 164/97 Respiratory Rate: 16 Pulse Ox: 99 Assessment Airway patent: Yes Spontaneous unlabored respirations: Yes nausea: No Vomiting: No Anesthesia Complication: No Fluid Hydration Crystalloid volume administer (ml): 1,000 Total IV fluid infused: 1,000 Progress Note Anesthesia document: Postop Eval 1 completed: Yes
--- NOTE | 2024-07-12 15:30 | PCM.POSTANE2 ---
Anesthesia Postop Eval I Sum Postop Eval Completion status Anesthesia document: Postop Eval 1 completed: Yes Anesthesia Postop Eval I Summary Anesthesia Postop Eval I Summary: Anesthesia Postop Eval I: Assessment Summary Airway patent Yes 07/12/24 15:29 Spontaneous unlabored Yes 07/12/24 15:29 respirations Mental status nausea No 07/12/24 15:29 Vomiting No 07/12/24 15:29 Anesthesia Postop Eval I: Fluid Summary Crystalloid volume administer 1,000 07/12/24 15:29 (ml) Colloids volume administered ( ml) Blood Product volume administered (ml) Total IV fluid infused 1,000 07/12/24 15:29 Anesthesia Postop Eval I: Summary Notes Anesthesia Complication No 07/12/24 15:29 Anesthesia Complication Comment: Post-operative progress note Anesthesia: Postop Eval II Evaluation Mental status: Awake Pain Level: 0 nausea: No Vomiting: No
[2024-07-12] MEDS: 0.9% Saline Lock 10 ML Syringe IV (17:31)
[2024-07-12] MEDS: Ketorolac 15 MG/ML Vial IV (17:31)
[2024-07-12] MEDS: Acetaminophen 500 MG Tablet 1000 MG PO (21:21)
[2024-07-12] MEDS: Senna/Docusate Sodium 1 Tablet 2 TABLET PO (21:22)
[2024-07-12] MEDS: Aspirin 81 MG TAB.CHEW PO (21:22)
[2024-07-13] MEDS: 0.9% Normal Saline (250mL Bag) 250 ML 15 ML IV (01:40)
[2024-07-13 05:28] LABS: Hematocrit 32.5 % (40-54); Hemoglobin 10.1 g/dL (13.0-16.5); Mean Corp Hgb Conc 31.1 g/dL (32-36); Mean Corpuscular Hgb 26.5 pg (27.0-32.0); Mean Corpuscular Volume 85.3 fL (80-94); Mean Platelet Vol. 9.1 fl (6.2-12.0); Platelet Count 354 K/mm3 (150-450); RBC Distribution Width CV 15.4 % (11.6-14.6); RBC Distribution Width SD 47.6 fl (35.1-43.9); Red Blood Count 3.81 M/mm3 (4.6-6.2); White Blood Count 7.7 K/mm3 (4.4-11.0)
[2024-07-13 06:15] LABS: Anion Gap 12 (5-15); BUN 15 mg/dL (4-19); BUN/Creat Ratio 18.8 RATIO (10-20); Calcium,Total 8.4 mg/dL (7.6-11.0); Carbon Dioxide 22.8 mmol/L (21.0-32.0); Chloride 105 mmol/L (98-108); Creatinine, Serum 0.81 mg/dL (0.70-1.20); EST Glomerular Filtration Rate 96 (>60); Estimated Creatinine Clearance 105.19 ml/min (50-250); Glucose 86 mg/dL (70-99); Potassium 3.9 mmol/L (3.3-5.1); Sodium Level 139 mmol/L (133-145)
[2024-07-13] MEDS: Acetaminophen 500 MG Tablet 1000 MG PO ×3 (06:32→21:00)
[2024-07-13 08:08] VITALS: BP 150/87; PULSE 74; RESP 18; TEMP 36.8; O2SAT 97
--- NOTE | 2024-07-13 08:14 | PCM.HOSP.N ---
Hospitalist Note Date of this entry is 07/12/2024: Patient was not seen today due to being in the operating room for his knee washout.
[2024-07-13] MEDS: dilTIAZem CD 240 MG Capsule PO (08:15)
[2024-07-13] MEDS: Famotidine 20 MG Tablet PO (08:15)
[2024-07-13] MEDS: Aspirin 81 MG TAB.CHEW PO ×2 (08:15→17:38)
[2024-07-13] MEDS: Escitalopram Oxalate 20 MG Tablet PO (08:15)
[2024-07-13] MEDS: Senna/Docusate Sodium 1 Tablet 2 TABLET PO ×2 (08:15→21:01)
[2024-07-13] MEDS: Ensure Surgery 237 ML LIQUID PO ×3 (08:19→17:38)
[2024-07-13 09:54] LABS: Vancomycin, Trough Level 16.3 ug/mL (5.0-15.0)
[2024-07-13] MEDS: Vancomycin Trough/Random Due 1 LAB MC ×2 (10:02→11:23)
--- NOTE | 2024-07-13 10:06 | PCM.PN.HOSP ---
Reason for Visit Reason for Visit: Diagnoses Pyogenic arthritis, unspecified (07/11/24) Infection following a procedure, other surgical site, initial encounter (07/11/24) Infection and inflammatory reaction due to internal left knee prosthesis, initial encounter (07/11/24) Subjective Subjective Patient was seen and examined today, other than some left knee pain, he has no complaints at the present time. Patient underwent left knee irrigation debridement and complete synovectomy with 1 component revision polyethylene exchange yesterday. Culture from the left knee grew out Staph epidermidis, patient is currently on vancomycin. Objective Data Objective Data Vital Signs: Vital Signs Temp Pulse Resp BP Pulse Ox O2 Del Method O2 Flow Rate 98.2 F 74 18 150/87 H 97 Room Air 2 07/13/24 08:08 07/13/24 08:08 07/13/24 08:08 07/13/24 08:08 07/13/24 08:08 07/13/24 08:08 07/12/24 16:30 Oxygen Flow Rate (L/min) 2 Oxygen Delivery Method Room Air Weight: 103.5 kg Body Mass Index (BMI) 32.3 Intake & Output: Intake and Output for Last 24 Hours 07/11/24 07/12/24 07/13/24 23:59 23:59 23:59 Intake Total 50 / 50 1390 / 1390 530 / 530 Output Total 270 / 270 50 / 50 Balance 50 / 50 1120 / 1120 480 / 480 Lab / Micro Data 07/13/24 05:00 07/13/24 05:00 Labs: Laboratory Results - last 24 hr 07/13/24 05:00: WBC 7.7, RBC 3.81 L, Hgb 10.1 L, Hct 32.5 L, MCV 85.3, MCH 26.5 L, MCHC 31.1 L, RDW Std Deviation 47.6 H, RDW Coeff of Jr 15.4 H, Plt Count 354, MPV 9.1, Sodium 139, Potassium 3.9, Chloride 105, Carbon Dioxide 22.8, Anion Gap 12, BUN 15, Creatinine 0.81, Estim Creat Clear Calc 105.19, Est GFR (MDRD) Non-Af 96, BUN/Creatinine Ratio 18.8, Glucose 86, Calcium 8.4 07/13/24 08:57: Vancomycin Trough 16.3 H Micro: Microbiology 07/12/24 13:21 Tissue - Knee Wound Culture - Preliminary No growth-Final to follow 07/12/24 13:18 Tissue - Knee Wound Culture - Preliminary No growth-Final to follow 07/12/24 13:14 Tissue - Knee Wound Culture - Preliminary No growth-Final to follow Physical Exam Const alert, oriented x3, no apparent distress and healthy appearing General Appearance: cooperative, well kempt and well developed Orientation / Consciousness: awake, oriented to person, oriented to place and oriented to time HEENT normocephalic, head/scalp atraumatic and moist oral mucous membranes Eyes PERRL, EOMs intact bilaterally and conjunctivae normal Neck supple, no JVD, thyroid normal and no carotid bruits General: trachea midline Resp normal respiratory effort, no retractions, no use of accessory muscles and clear to auscultation bilaterally Auscultation: Negative for rales, rhonchi or wheezes Cardio regular rate, regular rhythm, S1 normal heart sound, S2 normal heart sound, no murmurs, no rub and no gallops GI normal to inspection, nondistended, normoactive bowel sounds, soft to palpation, non-tender and non-distended Skin no rashes or lesions noted Neuro oriented x3, CN's II-XII intact bilaterally, moves all extremities, no focal motor deficits and no sensory deficits noted Sensorium / Orientation: awake and alert Speech: speech normal Psych affect normal Assessment & Plan Assessment/Plan (1) Infection of total left knee replacement: PLAN: Plan 1. 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-patient remains on vancomycin at this time, he is being seen by orthopedic surgery, infectious diseases will see the patient tomorrow for advice on course of antibiotics as an outpatient. #2 essential hypertension-patient will remain on his present medication #3 chronic depression-patient is on Lexapro #4 type 2 diabetes-patient is on metformin 500 mg a day at home, I will place him on metformin 500 mg twice daily, I do not think his blood sugars need to be monitored, patient's blood sugars this admission had not been significantly elevated. Total clinical time spent by myself addressing the patient's medical issues, reviewing all of his data, and collaborating with patient's care team: 35 minutes Charges/Coding Visit Charges Inpatient E&M: 95936 Subs Hosp L2
--- NOTE | 2024-07-13 10:28 | PCM.PN.ORT ---
Subjective Subjective Patient is doing well. No acute events overnight. Stable after surgery. Pain is well-controlled. Current cultures and Gram stains are pending. Objective Data Objective Data Vital Signs: Vital Signs Temp Pulse Resp BP Pulse Ox O2 Del Method O2 Flow Rate 98.2 F 74 18 150/87 H 97 Room Air 2 07/13/24 08:08 07/13/24 08:08 07/13/24 08:08 07/13/24 08:08 07/13/24 08:08 07/13/24 08:08 07/12/24 16:30 Oxygen Flow Rate (L/min) 2 Oxygen Delivery Method Room Air Weight: 228 lb 2.855 oz Body Mass Index (BMI) 32.3 Intake & Output: Intake and Output for Last 24 Hours 07/11/24 07/12/24 07/13/24 23:59 23:59 23:59 Intake Total 50 / 50 1390 / 1390 530 / 530 Output Total 270 / 270 50 / 50 Balance 50 / 50 1120 / 1120 480 / 480 Lab / Micro Data Attestation: I reviewed the patient's lab results. 07/13/24 05:00 07/13/24 05:00 Labs: Laboratory Results - last 24 hr 07/13/24 05:00: WBC 7.7, RBC 3.81 L, Hgb 10.1 L, Hct 32.5 L, MCV 85.3, MCH 26.5 L, MCHC 31.1 L, RDW Std Deviation 47.6 H, RDW Coeff of Jr 15.4 H, Plt Count 354, MPV 9.1, Sodium 139, Potassium 3.9, Chloride 105, Carbon Dioxide 22.8, Anion Gap 12, BUN 15, Creatinine 0.81, Estim Creat Clear Calc 105.19, Est GFR (MDRD) Non-Af 96, BUN/Creatinine Ratio 18.8, Glucose 86, Calcium 8.4 07/13/24 08:57: Vancomycin Trough 16.3 H Micro: Microbiology 07/12/24 13:21 Tissue - Knee Wound Culture - Preliminary No growth-Final to follow 07/12/24 13:18 Tissue - Knee Wound Culture - Preliminary No growth-Final to follow 07/12/24 13:14 Tissue - Knee Wound Culture - Preliminary No growth-Final to follow Physical Exam Narrative Left lower extremity: Dressing is clean dry and intact Sensations intact to light touch saphenous, sural, superficial peroneal, deep peroneal, and tibial distributions Motors intact EHL, DF, PF calves are soft and supple Drain has serosanguineous fluid. Const alert, oriented x3 and no apparent distress Assessment & Plan Assessment/Plan (1) Infection of total left knee replacement: PLAN: Postop day 1 irrigation debridement polyethylene exchange 1 component revision left knee periprosthetic joint infection 1. Infection: Continue vancomycin IV antibiotics. Awaiting infectious ease consultation for definitive antibiotic treatment. Currently patient has staph epi resistant to cephalosporins and penicillins. 2. Pain control: Continue current regimen, currently stable 3. Postop constipation, bowel regimen: Continue with current regimen until regular bowel movements 4. Incentive spirometry: Continue to encourage incentive spirometry every hour 5. Therapy: Knee immobilizer in place, no knee flexion. Ambulate and weightbearing as tolerated. 6. Drain: Will plan to discontinue drain prior to discharge home likely tomorrow morning. 220 mL overnight. Serosanguineous fluid. 7. DVT prophylaxis: Patient is ambulating with walker encourage ambulation activity as tolerated. Aspirin 81 mg p.o. twice daily. SCDs while in the hospital. 8. Disposition: Patient will be ready for discharge once antibiotic regimen is stabilized with infectious disease. Will need PICC line if continues with IV antibiotics at home. Awaiting final antibiotic regimen prior to getting PICC line placement. Follow-up in office in 2 weeks with orthopedics for wound check and suture removal. We will plan to begin range of motion at that visit if wound is well-healed. Patient will likely need 6 weeks of IV antibiotics however will defer to infectious disease for final antibiotic regimen. Does have resistance to cephalosporins and penicillins. Once antibiotic regimen is finalized patient will be ready for discharge. Will plan to see the patient tomorrow morning likely discontinue the drain if appropriate.
--- NOTE | 2024-07-13 10:35 | PCM.RX.CS ---
Consult Antibiotic Management Pharmacy has been consulted to manage selected antibiotic: Vancomycin Type of Intervention Type of Consult: Follow-up Prior Doses of Antibiotics Prior Doses of Antibiotics Received/Current Regimen: current dose is 1500mg IV q12h Labs Labs: Sodium 139 mmol/L (133-145) 07/13/24 05:00 Potassium 3.9 mmol/L (3.3-5.1) 07/13/24 05:00 Chloride 105 mmol/L (98-108) 07/13/24 05:00 Carbon Dioxide 22.8 mmol/L (21.0-32.0) 07/13/24 05:00 Anion Gap 12 (5-15) 07/13/24 05:00 BUN 15 mg/dL (4-19) 07/13/24 05:00 Creatinine 0.81 mg/dL (0.70-1.20) 07/13/24 05:00 Est GFR (MDRD) Non-Af 96 (>60) 07/13/24 05:00 BUN/Creatinine Ratio 18.8 RATIO (10-20) 07/13/24 05:00 Glucose 86 mg/dL (70-99) 07/13/24 05:00 Vancomycin Trough 16.3 ug/mL (5.0-15.0) H 07/13/24 08:57 Microbiology Microbiology: Microbiology 07/12/24 13:21 Tissue - Knee Wound Culture - Preliminary No growth-Final to follow 07/12/24 13:18 Tissue - Knee Wound Culture - Preliminary No growth-Final to follow 07/12/24 13:14 Tissue - Knee Wound Culture - Preliminary No growth-Final to follow Dosing Weight Weight used for dosin.5 kg Estimated Creatinine Clearance Estimated Creatinine Clearance: 105ml/min Goal Trough Goal Trough: 15-20 mcg/mL Pharmacy Plan for Drug Dosing Pharmacy Plan for Drug Dosing: The vanc trough drawn at 08:57 today was 16.3mcg/ml, which is in goal range. It was drawn at only 9 hours after the previous dose since that dose was given late. If drawn at the appropriate 11.5 hour time frame, it would have been lower than 16.3. Since it is difficult to predict what exactly the trough would have been, will keep the same dose for now and repeat a trough in 2 days per protocol. Pharmacy Service will continue to monitor and adjust dosing as required. Follow-Up Labs Follow-Up Labs: Trough: Vancomycin Date/Time Labs Ordered Labs to be done on [date and time ordered]: 07/15/24 09:00
[2024-07-13] MEDS: Vancomycin HCl 1,500 MG in 0.9% Normal Saline (500mL Bag) 500 ML 250 MG IV ×2 (10:38→21:02)
[2024-07-13] MEDS: oxyCODONE 5 MG Tablet PO ×2 (11:56→21:00)
[2024-07-13] MEDS: Ketorolac 15 MG/ML Vial IV (11:56)
[2024-07-13] MEDS: 0.9% Saline Lock 10 ML Syringe IV ×2 (11:56→21:01)
[2024-07-13 15:30] VITALS: BP 121/78; PULSE 66; RESP 18; TEMP 36.3; O2SAT 95
[2024-07-13] MEDS: metFORMIN HCl 500 MG Tablet PO (17:38)
[2024-07-13 20:51] VITALS: BP 154/88; PULSE 66; RESP 18; TEMP 36.8; O2SAT 98
[2024-07-14 05:10] VITALS: BP 147/85; PULSE 65; RESP 18; TEMP 36.3; O2SAT 100
[2024-07-14] MEDS: Acetaminophen 500 MG Tablet 1000 MG PO ×3 (05:15→21:22)
--- NOTE | 2024-07-14 07:45 | PCM.PN.ORT ---
Subjective Subjective Patient is lying comfortably in bed. Patient states that he has been up working with physical therapy and things have gone well. Patient states he is stated knee immobilizer at all times. Patient states that his pain is adequately controlled. Patient denies any new numbness or tingling. Patient denies any nausea, vomiting, dizziness. Patient denies any lightheadedness. Patient denies any fevers, chills. Patient denies any shortness of breath, chest pain, calf pain. Patient denies any adverse events overnight. Patient has had 45 of drainage from Hemovac drain from day shift yesterday until 730 this morning. Objective Data Objective Data Vital Signs: Vital Signs Temp Pulse Resp BP Pulse Ox O2 Del Method O2 Flow Rate 97.4 F L 65 18 147/85 H 100 Room Air 2 07/14/24 05:10 07/14/24 05:10 07/14/24 05:10 07/14/24 05:10 07/14/24 05:10 07/14/24 05:10 07/12/24 16:30 Oxygen Flow Rate (L/min) 2 Oxygen Delivery Method Room Air Weight: 103.5 kg Body Mass Index (BMI) 32.3 Intake & Output: Intake and Output for Last 24 Hours 07/12/24 07/13/24 07/14/24 23:59 23:59 23:59 Intake Total 1390 / 1390 1950 / 2480 530 / 530 Output Total 270 / 270 70 / 70 35 / 35 Balance 1120 / 1120 1880 / 2410 495 / 495 Lab / Micro Data 07/13/24 05:00 07/13/24 05:00 Labs: Laboratory Results - last 24 hr 07/13/24 08:57: Vancomycin Trough 16.3 H Micro: Microbiology 07/12/24 13:21 Tissue - Knee Gram Stain - Final 07/12/24 13:21 Tissue - Knee Wound Culture - Preliminary No growth-Final to follow 07/12/24 13:18 Tissue - Knee Gram Stain - Final 07/12/24 13:18 Tissue - Knee Wound Culture - Preliminary No growth-Final to follow 07/12/24 13:14 Tissue - Knee Gram Stain - Final 07/12/24 13:14 Tissue - Knee Wound Culture - Preliminary No growth-Final to follow Physical Exam Narrative OLGA hose in place bilaterally SCDs in place bilaterally Dressing is clean dry and intact Hemovac drain in place with serosanguineous fluid. Dorsiflexion and plantarflexion are performed actively without pain or restriction Sensation tact light touch Neurovascularly intact overall. Negative Homans bilaterally. Const alert, oriented x3 and no apparent distress Assessment & Plan Assessment/Plan (1) Infection of total left knee replacement: PLAN: Status post irrigation and debridement Polyethylene exchange 1 component revision left knee periprosthetic joint infection postop day 2. 1. DVT prophylaxis: Patient will be on aspirin 81 mg twice daily for 4 weeks. Patient was instructed to wear his OLGA hose for 2 weeks postoperatively removing at bedtime. 2. Pain medications: Patient was instructed to take Tylenol 1000 mg every 8 hours [id number] taking no more than 3000 in 24 hours. Patient was educated he will then be on oxycodone as needed for breakthrough pain. OARRS report was reviewed today. 3. Constipation: Patient was instructed to take senna as instructed until her first bowel movement to decrease risk of impaction following surgery. Patient was instructed if they have not had a bowel movement in 3 days to call our office for reevaluation. 4. Physical therapy: Patient will be weightbearing as tolerated with walker with physical therapy. Patient will be in the immobilizer at all times with no flexion until 2-week appointment. 5. H&H: 10.1/32.5 from 07/13/2024. Hemoglobin had improved from 9.7. Vitals are stable and patient is afebrile. 6. Awaiting final antibiotic regimen from infectious disease. Appreciate all recommendations from infectious disease. If patient is requiring IV antibiotics he was educated that he would likely need a PICC line. 7. Incentive spirometry: Patient was encouraged to use incentive spirometer every hour that they are awake for the first week to x-ray of lungs and decrease risk of postoperative lung infection. 8. Infection: Continue vancomycin IV antibiotics. We are still awaiting infectious disease consultation for definitive treatment. Currently patient has staph resistant to cephalosporins and penicillins. Patient's Gram stain has been resulted with no growth. 9. Hemovac drain: Patient Hemovac drain has had 45 of drainage since dayshift yesterday until 7:30 AM. We did remove patient's drain at this time. Patient tolerated procedure well. Mepilex dressing was also replaced due to dressing from drain ripping Mepilex. 8. Patient was educated he can get dressing wet on postop day 1 and remove dressing on postop day 5. As long as incision looks clean dry and intact may leave open to air and shower using gentle soap and water. Patient was educated to avoid doing any soaking or submerging for 6 weeks. Patient was educated to avoid any lotions, salves, oils directly on top of incision for 6 weeks. Patient was educated to let the white strips from where his drain was fall off on their own. 9. Patient's primary care team is medicine so he is being managed by medicine team. Appreciate recommendations from medicine team. 10. Follow-up appointment: Patient is to follow-up at [facility] office for 2-week appointment for evaluation of left knee. Patient will likely begin range of motion at this appointment if incision is well-healed. 11. Patient is okay for discharge from orthopedic standpoint as long as pain maintains adequately controlled, has worked with and is cleared by physical therapy, is okay per medicine doctor who is primary care team, and patient has gotten a consultation from infectious disease with final recommendations for postoperative antibiotics. 12. Disposition: Patient does still plan to go home at this point. Patient was educated he will have a follow-up in 2 weeks at our office for reevaluation of his left knee. At this time if patient's incision is well-healed he will likely begin range of motion. Patient was educated he may require IV antibiotics which would require a PICC line. Patient voiced understanding. We are still awaiting consult from infectious disease. Patient will not require outpatient physical therapy until we begin range of motion. Patient was encouraged to call with any questions, concerns, new problems. All questions were answered to the best my ability.
[2024-07-14 08:59] VITALS: BP 113/59; PULSE 78; RESP 18; TEMP 36.6; O2SAT 97
[2024-07-14] MEDS: Famotidine 20 MG Tablet PO (09:08)
[2024-07-14] MEDS: Aspirin 81 MG TAB.CHEW PO ×2 (09:08→16:51)
[2024-07-14] MEDS: metFORMIN HCl 500 MG Tablet PO ×2 (09:08→16:51)
[2024-07-14] MEDS: Escitalopram Oxalate 20 MG Tablet PO (09:08)
[2024-07-14] MEDS: dilTIAZem CD 240 MG Capsule PO (09:08)
[2024-07-14] MEDS: Ensure Surgery 237 ML LIQUID PO ×2 (09:09→16:51)
[2024-07-14] MEDS: Vancomycin HCl 1,500 MG in 0.9% Normal Saline (500mL Bag) 500 ML 250 MG IV ×2 (09:16→21:22)
[2024-07-14] MEDS: 0.9% Saline Lock 10 ML Syringe IV ×2 (09:16→21:22)
--- NOTE | 2024-07-14 10:49 | CASEMGMT ---
Social Work- SW met with pt and to review HCPOA information packet and form. SW provided education and answered questions. Pt wishes to take form to review and complete with PCP. Pt reports no other needs at this time. KERON Soto
--- NOTE | 2024-07-14 14:15 | CON.PCM.ID_ITS ---
Assessment & Plan Assessment/Plan (1) Infection of total left knee replacement: PLAN: L knee PJI - taken back to OR 07/12/[address] Taylor for I&D and poly exchange. Fluid cx with NICK. Picc today, cont vanc, will write for vanc 1.5gm q12h for 6 weeks, stop date 08/23/24 with weekly labs, ID followup in 2-3 weeks. Will follow, thank you, d/w primary team and case advocate HPI Consult Data Date of Consult: 07/14/24 HPI Narrative Reason for Consultation: PJI HPI Narrative: HILL URBINA, is a 68 M who had knee replacement 05/29/24, complicated by fall 2 weeks later with wound dehiscence. Taken back to OR 06/[address] Taylor for I&D and poly exchange. Put on doxy and augmentin but had progressive pain, redness, swelling. No fever or chills. Taken back to OR 07/12/24 for I&D, complete synovectomy, and poly exchange. Aspiration with NICK, on iv vanc, feeling better. Full ROS performed and neg except as noted above. ON LICENSE OF [facility] Medical History Wears partial dentures Open wound Non-smoker CPAP (continuous positive airway pressure) dependence Sleep apnea Hypertension Home Medications ?Medication ?Instructions ?Recorded ?Last Taken ?Type diltiazem HCl 240 mg 240 mg PO DAILY blood pressu re 06/12/24 07/11/24 History capsule,extended release 24 hr escitalopram oxalate 10 mg tablet 20 mg PO DAILY antid epressant 06/12/24 07/11/24 History metformin 500 mg tablet,extended 500 mg PO DAILY diabe eleanor 06/12/24 07/11/24 History release 24 hr diphenhydramine 25 ml PO .HS PRN pain 07/11/24 07/10/24 History mg-acetaminophen 500 mg/15 mL oral solution vancomycin 1.5 gram intravenous 1.5 g IV Q12H 40 days 07/14/24 Unknown Rx solution Allergy/AdvReac Type Severity Reaction Status Date / Time No Known Allergies Allergy Verified 07/11/24 20:04 Surgical History History of revision of total replacement of left knee joint S/P knee replacement Social History Smoking Status: Never smoker Physical Exam Const alert, oriented x3 and no apparent distress General Appearance: cooperative HEENT normocephalic and head/scalp atraumatic Eyes PERRL and EOMs intact bilaterally Neck supple and No nodes Resp normal air movement and clear to auscultation bilaterally Cardio regular rate and regular rhythm GI soft to palpation, non-tender and non-distended Extremity General Extremity: edema Skin Skin Narrative: L knee wrapped Neuro CN's II-XII intact bilaterally Lab / Micro Data Attestation: I reviewed the patient's lab results. 07/13/24 05:00 07/13/24 05:00 Micro: Microbiology 07/11/24 20:52 Blood Culture (Wb) - Anticubital Left Blood Culture - Preliminary No growth in 48 hours. 07/11/24 20:27 Blood Culture (Wb) - Anticubital Left Blood Culture - Preliminary No growth in 48 hours. 07/12/24 13:14 Tissue - Knee Gram Stain - Final 07/12/24 13:14 Tissue - Knee Wound Culture - Preliminary 07/12/24 13:21 Tissue - Knee Gram Stain - Final 07/12/24 13:21 Tissue - Knee Wound Culture - Preliminary No growth-Final to follow 07/12/24 13:18 Tissue - Knee Gram Stain - Final 07/12/24 13:18 Tissue - Knee Wound Culture - Preliminary No growth-Final to follow
[2024-07-14 14:43] VITALS: BP 156/79; PULSE 70; RESP 18; TEMP 36.6; O2SAT 98
--- NOTE | 2024-07-14 14:49 | CASEMGMT ---
Addendum entered by Sharonda Alcazar 07/14/24 16:03: Provided [facility] with pt PCP office, phone and fax per request. Also confirmed pt does not have [facility]. Picc report sent to [facility] via [employer]. Addendum entered by Sharonda Alcazar 07/14/24 14:58: ROLY ROUSSEAU into pt room, pt and aware of cost and awaiting [facility] response for teach. They state this is the way they would like to go. Original Note: RN ONELIA received IV atb rx from ID. RN ONELIA into pt room, pt sitting up in bed in no distress with family at bedside. Pt agreeable to discussion with family present. Reviewed options for IV atb at home with HHC vs learning on own and going outpt for labs/picc dressing change. Pt asks if RN ONELIA could call his PCP office to see if they are able to complete picc dressing change and labs weekly as well as cost. Pt is interested in learning IV and feels she can do so safely. They prefer not to have HHC. Verbally provided pt with a list of infusion companies, pt chose [facility]. Referral sent to [facility] via [employer] at this time requesting nurse educator to do a teach to pt and . TC to [facility] Major's office, spoke with nurse Busch. She states they can do dressing change and labs. Cost for all would be approx $160.
--- NOTE | 2024-07-14 15:56 | CHAPLAIN ---
Type of Pastoral Visit _x__ Initial Visit ___ Follow-up Visit ___ On-call Visit ___ General Patient Visit ___ Spiritual Assessment ___ Family Conference ___ Bereavement ___ Rapid Response ___ Code Blue ___ Other (describe below) Pastoral Care Referral From _x__ Patient ___ Family ___ Nurse ___ Physician ___ Timing Adjuster ___ Bilingual Teacher ___ Other (describe below) Sacrament/Intervention _x__ Active listening ___ Anointing ___ Muslim ___ Bereavement ___ Communion ___ Elke exploration ___ ___ Life review _x__ Prayer ___ Reconciliation ___ Sacrament of Sick ___ Supportive presence ___ Wedding ___ Other (describe below) Pastoral Comments patient and several family members are in the room; pt reports that this is the third surgery on his knee; pt admits that waiting for healing and recovery is hard but that he is also thankful for many people have it far worse than me; pt speaks of great family support and that his family came to sing to him last night and ended up blessing others in the hospital who requested their singing to them too; pt states that he has no other needs but would accept a prayer;
--- NOTE | 2024-07-14 19:33 | PCM.PN.HOSP ---
Reason for Visit Reason for Visit: Diagnoses Pyogenic arthritis, unspecified (07/11/24) Infection following a procedure, other surgical site, initial encounter (07/11/24) Infection and inflammatory reaction due to internal left knee prosthesis, initial encounter (07/11/24) Subjective Subjective Patient was seen and examined today, infectious diseases saw the patient and a PICC line was placed, it is likely the patient will be discharged home tomorrow. Objective Data Objective Data Vital Signs: Vital Signs Temp Pulse Resp BP Pulse Ox O2 Del Method O2 Flow Rate 97.8 F 70 18 156/79 H 98 Room Air 2 07/14/24 14:43 07/14/24 14:43 07/14/24 14:43 07/14/24 14:43 07/14/24 14:43 07/14/24 14:43 07/12/24 16:30 Oxygen Flow Rate (L/min) 2 Oxygen Delivery Method Room Air Weight: 103.5 kg Body Mass Index (BMI) 32.3 Intake & Output: Intake and Output for Last 24 Hours 07/12/24 07/13/24 07/14/24 23:59 23:59 23:59 Intake Total 1390 / 1390 1950 / 2480 1060 / 1060 Output Total 270 / 270 70 / 70 35 / 35 Balance 1120 / 1120 1880 / 2410 1025 / 1025 Lab / Micro Data 07/13/24 05:00 07/13/24 05:00 Micro: Microbiology 07/11/24 20:52 Blood Culture (Wb) - Anticubital Left Blood Culture - Preliminary No growth in 48 hours. 07/11/24 20:27 Blood Culture (Wb) - Anticubital Left Blood Culture - Preliminary No growth in 48 hours. 07/12/24 13:14 Tissue - Knee Gram Stain - Final 07/12/24 13:14 Tissue - Knee Wound Culture - Preliminary 07/12/24 13:21 Tissue - Knee Gram Stain - Final 07/12/24 13:21 Tissue - Knee Wound Culture - Preliminary No growth-Final to follow 07/12/24 13:18 Tissue - Knee Gram Stain - Final 07/12/24 13:18 Tissue - Knee Wound Culture - Preliminary No growth-Final to follow Physical Exam Narrative alert, oriented x3, no apparent distress and healthy appearing General Appearance: cooperative, well kempt and well developed Orientation / Consciousness: awake, oriented to person, oriented to place and oriented to time HEENT normocephalic, head/scalp atraumatic and moist oral mucous membranes Eyes PERRL, EOMs intact bilaterally and conjunctivae normal Neck supple, no JVD, thyroid normal and no carotid bruits General: trachea midline Resp normal respiratory effort, no retractions, no use of accessory muscles and clear to auscultation bilaterally Auscultation: Negative for rales, rhonchi or wheezes Cardio regular rate, regular rhythm, S1 normal heart sound, S2 normal heart sound, no murmurs, no rub and no gallops GI normal to inspection, nondistended, normoactive bowel sounds, soft to palpation, non-tender and non-distended Skin no rashes or lesions noted Neuro oriented x3, CN's II-XII intact bilaterally, moves all extremities, no focal motor deficits and no sensory deficits noted Sensorium / Orientation: awake and alert Speech: speech normal Psych affect normal Assessment & Plan Assessment/Plan (1) Postoperative infection of knee: (2) Infection of total left knee replacement: PLAN: Plan 1. 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-patient remains on vancomycin at this time, he is being seen by orthopedic surgery, infectious diseases saw the patient today and will write for outpatient antibiotics, I suspect the patient will be stable for discharge on 07/15/2024 #2 essential hypertension-patient will remain on his present medication #3 chronic depression-patient is on Lexapro #4 type 2 diabetes-patient is on metformin, blood sugars do not need to be monitored at this time Total clinical time spent by myself addressing the patient's medical issues, reviewing all of his data, and collaborating with patient's care team: 35 minutes Charges/Coding Visit Charges Inpatient E&M: 63521 Subs Hosp L2
[2024-07-14 20:12] VITALS: BP 147/78; PULSE 70; RESP 16; TEMP 37.1; O2SAT 98
[2024-07-14] MEDS: oxyCODONE 5 MG Tablet PO (21:21)
[2024-07-14] MEDS: 0.9% Normal Saline (250mL Bag) 250 ML 15 ML IV (21:22)
[2024-07-15 00:01] VITALS: BP 136/84; PULSE 60; RESP 16; TEMP 36.6; O2SAT 94
[2024-07-15 03:46] VITALS: BP 162/86; PULSE 79; RESP 16; TEMP 36.6; O2SAT 97
[2024-07-15] MEDS: Acetaminophen 500 MG Tablet 1000 MG PO ×2 (05:43→13:17)
[2024-07-15] MEDS: dilTIAZem CD 240 MG Capsule PO (08:09)
[2024-07-15] MEDS: Escitalopram Oxalate 20 MG Tablet PO (08:09)
[2024-07-15] MEDS: metFORMIN HCl 500 MG Tablet PO (08:09)
[2024-07-15] MEDS: Aspirin 81 MG TAB.CHEW PO (08:09)
[2024-07-15] MEDS: Famotidine 20 MG Tablet PO (08:09)
[2024-07-15 08:17] VITALS: BP 135/89; PULSE 72; RESP 18; TEMP 36.6; O2SAT 99
--- NOTE | 2024-07-15 09:27 | CASEMGMT ---
Addendum entered by Sharonda Alcazar 07/15/24 12:50: Spoke with Mazin from [facility] who states pt and did well with teaching. Med to be delivered tonight. Spoke with pt and who feel comfortable dc'ing with IV. They are aware that after the medication infuses they may dc home. Addendum entered by Sharonda Alcazar 07/15/24 10:47: Mazin from [facility] will be here at 1130am for bedside teach. Original Note: ROLY ROUSSEAU into pt room, pt sitting up in chair with at bedside. Pt is aware that I will be contacting him to set up a time to do a teaching today. Confirmed phone number and sent to [facility]. Pt has phone in his shirt pocket. Pt aware ROLY ROUSSEAU will set up PCP appt for next Sunday in the afternoon. Pt agreeable to this. Pt is aware of cost of medication per week. TC to [facility]'s office, they are closed on Sunday for the holiday. Appt scheduled for Sunday at 1pm. Placed on dc instructions. Order faxed to their office to [phone]. Updated [facility] with their fax number. Also sent I the pharmacy dosing and labs from 07/13 as vanco trough is pending. Pt also made aware of appt.
[2024-07-15 10:02] LABS: Vancomycin, Trough Level 14.4 ug/mL (5.0-15.0)
--- NOTE | 2024-07-15 10:25 | PCM.RX.CS ---
Consult Antibiotic Management Pharmacy has been consulted to manage selected antibiotic: Vancomycin Type of Intervention Type of Consult: Follow-up Labs Labs: Sodium 139 mmol/L (133-145) 07/13/24 05:00 Potassium 3.9 mmol/L (3.3-5.1) 07/13/24 05:00 Chloride 105 mmol/L (98-108) 07/13/24 05:00 Carbon Dioxide 22.8 mmol/L (21.0-32.0) 07/13/24 05:00 Anion Gap 12 (5-15) 07/13/24 05:00 BUN 15 mg/dL (4-19) 07/13/24 05:00 Creatinine 0.81 mg/dL (0.70-1.20) 07/13/24 05:00 Est GFR (MDRD) Non-Af 96 (>60) 07/13/24 05:00 BUN/Creatinine Ratio 18.8 RATIO (10-20) 07/13/24 05:00 Glucose 86 mg/dL (70-99) 07/13/24 05:00 Vancomycin Trough 14.4 ug/mL (5.0-15.0) 07/15/24 09:06 Microbiology Microbiology: Microbiology 07/12/24 13:14 Tissue - Knee Gram Stain - Final 07/12/24 13:14 Tissue - Knee Wound Culture - Preliminary No growth-Final to follow 07/12/24 13:14 Tissue - Knee Anaerobic Culture - Preliminary No growth in 48 hours. 07/12/24 13:18 Tissue - Knee Gram Stain - Final 07/12/24 13:18 Tissue - Knee Wound Culture - Preliminary No growth-Final to follow 07/12/24 13:18 Tissue - Knee Anaerobic Culture - Preliminary No growth in 48 hours. 07/12/24 13:21 Tissue - Knee Gram Stain - Final 07/12/24 13:21 Tissue - Knee Wound Culture - Preliminary No growth-Final to follow 07/12/24 13:21 Tissue - Knee Anaerobic Culture - Preliminary No growth in 48 hours. 07/11/24 20:52 Blood Culture (Wb) - Anticubital Left Blood Culture - Preliminary No growth in 48 hours. 07/11/24 20:27 Blood Culture (Wb) - Anticubital Left Blood Culture - Preliminary No growth in 48 hours. Goal Trough Goal Trough: 15-20 mcg/mL Pharmacy Plan for Drug Dosing Pharmacy Plan for Drug Dosing: VANCOMYCIN LEVEL RECEIVED Current Vancomycin Dose: 1500mg IV Q12hr Number of Doses Received: 6 (of current dose) Vancomycin Level: 14.4 Hours Since Last Dose: 11.5hr Renal Function: SCr 0.81 Renal Function Trend: stable Lab/Micro: Cultures pending Vancomycin Plan/Comments: Patient had a trough drawn which resulted in a value of 14.4 (goal 15-20). The patient is slightly subtherapeutic, but was previously therapeutic on current regimen. Will increase dose of vancomycin slightly and start 1750mg IV Q12hr to start 07/15/24 @1100 Pending Level: 07/16/24 @2230, prior to 4th dose of new regimen per protocol Pharmacy Service will continue to monitor and adjust dosing as required.
--- NOTE | 2024-07-15 11:11 | DCINST_ITS ---
Discharge Instructions Diet Discharge Diet: 1800 Calorie Control Diet DC O2, CPAP, BIPAP needs Home O2 Discharge instructions: No Dressing / Incision Discharge Activity: Return to Normal Activity Weight Bearing Status: Weight bearing as tolerated (with walker) Follow Up Care Test Results: Test results from this visit will be discussed in further detail at your follow- up appointment, if applicable. Discharge Plan Admission Admit Date/Time: 07/11/24 22:22 Primary Reason for Your Visit: Prosthetic knee infection left leg Attending Provider: Jasson Omalley Primary Care Provider: Warner Major Consulting Providers: Irene Rogers; Dedrick Taylor; Luis Angel Winters Instructions Additional Instructions / Restrictions: Wear knee immobilizer at all times with no flexion until 2-week appointment at Dr. Taylor's office. You may take Dulcolax 10 mg daily as needed for constipation-or MiraLAX 17 g once or twice a day as needed for constipation Wear OLGA hose for 2 weeks postop removing at bedtime Discharge Orders/Prescriptions Prescriptions: New vancomycin 1.5 gram recon soln 1.5 g IV Q12H 40 Days Rx Instructions: stop date 08/23/24. Dx: knee prosthetic joint infection. Weekly bmp, cbc, esr, and vanc trough. Fax to [phone]. Routine picc care per protocol. metformin 500 mg Tablet 500 mg PO BIDCM Qty: 60 0RF acetaminophen 500 mg Tablet 1,000 mg PO Q8 Qty: 0 0RF aspirin 81 mg Tablet,Chewable 81 mg PO BIDCM Qty: 0 0RF oxycodone 5 mg Tablet 5 - 10 mg PO Q4H PRN PRN (Reason: Pain Score 4-10) 7 Days Qty: 20 0RF pantoprazole [Protonix] 40 mg tablet,delayed release (DR/EC) 40 mg PO DAILY Qty: 30 0RF Rx Instructions: Take for 30 days while taking aspirin 81 mg twice a day Continued diltiazem HCl 240 mg capsule,extended release 24hr 240 mg PO DAILY escitalopram oxalate 10 mg tablet 20 mg PO DAILY diphenhydramine-acetaminophen 25-500 mg-mg/mL solution PO .HS PRN (Reason: pain ) Discontinued metformin 500 mg tablet extended release 24 hr 500 mg PO DAILY amoxicillin-pot clavulanate [Augmentin] 1 tab PO Q12H Referrals / Follow Up: Warner Major PA-C [Primary Care Provider] - 07/22/24 1:00 pm (For picc dressing change and labs. You will need to schedule for weekly visits after this one. ) Dedrick Taylor MD [Med Staff - Active Staff] - See Referral Note (In 2 weeks) Disposition Disposition (needs filled in before D/C Order can be placed): Home Health Service
[2024-07-15] MEDS: Vancomycin HCl 1,750 MG in 0.9% Normal Saline (500mL Bag) 500 ML 250 MG IV (11:12)
--- NOTE | 2024-07-15 11:50 | PCM.DC.SUM ---
Providers Date of Admission: 07/11/24 Date of Discharge: 07/15/24 Primary Care Physician: Warner Major PA-C Consultations 07/13/24 10:08 Consult: Infectious Disease Routine Consulting Provider: Luis Angel Winters Reason for Consult: left knee infection EMERGENT Consult: No Notified: Yes Date Notified: 07/14/24 Time Notified: 07:48 Method of Notification: Text Consult: Orthopedics Routine Consulting Provider: Dedrick Taylor Reason for Consult: left knee infection EMERGENT Consult: No Notified: Yes Date Notified: 07/11/24 Time Notified: 20:32 Method of Notification: Verbal Reason For Visit: INFECTED KNEE PROSTHESIS Diagnosis Discharge Diagnosis (1) Postoperative infection of knee: Status: Inactive Code(s): T81.49XA - Infection following a procedure, other surgical site, initial encounter; M00.9 - Pyogenic arthritis, unspecified (2) Infection of total left knee replacement: Status: Inactive Code(s): T84.54XA - Infection and inflammatory reaction due to internal left knee prosthesis, initial encounter Plan 1. 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-patient remains on vancomycin at this time, he is being seen by orthopedic surgery, infectious diseases saw the patient today and will write for outpatient antibiotics, I suspect the patient will be stable for discharge on 07/15/2024 #2 essential hypertension-patient will remain on his present medication #3 chronic depression-patient is on Lexapro #4 type 2 diabetes-patient is on metformin, blood sugars do not need to be monitored at this time Total clinical time spent by myself addressing the patient's medical issues, reviewing all of his data, and collaborating with patient's care team: 35 minutes Medications at Discharge Home Medications diltiazem HCl 240 mg capsule,extended release 24 hr 240 mg PO DAILY blood pressure 06/12/24 escitalopram oxalate 10 mg tablet 20 mg PO DAILY antidepressant 06/12/24 diphenhydramine 25 mg-acetaminophen 500 mg/15 mL oral solution ml PO .HS PRN pain 07/11/24 vancomycin 1.5 gram intravenous solution 1.5 g IV Q12H 40 days 07/14/24 acetaminophen 500 mg tablet 1,000 mg (2 x 500 mg) PO Q8 #0 tabs 07/15/24 aspirin 81 mg chewable tablet 81 mg PO BIDCM #0 tabs 07/15/24 metformin 500 mg tablet 500 mg PO BIDCM #60 tabs 07/15/24 oxycodone 5 mg tablet 5 - 10 mg (1 - 2 x 5 mg) PO Q4H PRN PRN Pain Score 4-10 7 days #20 tabs 07/15/24 pantoprazole 40 mg tablet,delayed release (Protonix) 40 mg PO DAILY #30 tabs 07/15/24 Hospital Course Operations - (Washout of the left knee with complete synovectomy 1 component revision polyethylene exchange-07/12/24) Procedures PICC line placement Summary of Care Provided Minutes Spent on Discharge: 32 Hospital Course: This 68-year-old white male was seen in the emergency room at [facility] after being sent in by his orthopedic surgery for a possible left knee infection. Labs were obtained, white blood cell count was normal, chemistry profile was unremarkable. Patient was admitted to [place] [address], patient's culture from his knee grew out staph epi, vancomycin IV was continued, patient was taken for a washout of his left knee and a polyethylene exchange. Patient had a PICC line inserted and was seen by infectious diseases and arrangements were made for the patient to receive antibiotics as an outpatient. On 07/15/2024, patient was seen and examined: On examination he appeared in good health and spirits. Vital signs as documented. Skin warm and dry and without overt rashes. Neck without JVD, neck was supple, trachea midline, thyroid was normal. Lungs clear bilaterally, normal air movement was noted. Heart exam notable for regular rhythm, normal sounds and absence of murmurs, rubs or gallops. Abdomen unremarkable and without evidence of organomegaly, masses, or abdominal aortic enlargement. Bowel sounds are present, abdomen is not distended. Extremities nonedematous, no cyanosis was noted, no clubbing was noted. Neuro: Cranial nerves II through XII are grossly intact, no focal motor deficits were noted, sensation to light touch and pinprick intact, motor exam 5/5 throughout. Psych: Patient is alert and oriented x3, he does not appear anxious or depressed, he does not appear agitated. Patient was discharged home in stable condition on that day. Weight / BMI Weight Weight: 103.5 kg Body Mass Index (BMI) 32.3 ABG / Lab / Microbiology Data 07/13/24 05:00 07/13/24 05:00 Laboratory: Laboratory Results - last 24 hr 07/15/24 09:06: Vancomycin Trough 14.4 Microbiology: Microbiology 07/11/24 20:52 Blood Culture (Wb) - Anticubital Left Blood Culture - Final No growth in 5 days. 07/11/24 20:27 Blood Culture (Wb) - Anticubital Left Blood Culture - Final No growth in 5 days. 07/12/24 13:21 Tissue - Knee Gram Stain - Final 07/12/24 13:21 Tissue - Knee Wound Culture - Final No growth aerobically. 07/12/24 13:21 Tissue - Knee Anaerobic Culture - Preliminary No growth in 48 hours. 07/12/24 13:18 Tissue - Knee Gram Stain - Final 07/12/24 13:18 Tissue - Knee Wound Culture - Final No growth aerobically. 07/12/24 13:18 Tissue - Knee Anaerobic Culture - Preliminary No growth in 48 hours. 07/12/24 13:14 Tissue - Knee Gram Stain - Final 07/12/24 13:14 Tissue - Knee Wound Culture - Final No growth aerobically. 07/12/24 13:14 Tissue - Knee Anaerobic Culture - Preliminary No growth in 48 hours. D/C Instructions Discharge Diet: 1800 Calorie Control Diet Weight Bearing Status: Weight bearing as tolerated (with walker) DC O2, CPAP, BIPAP Needs Home O2 Discharge instructions: No Meaningful Use Info Meaningful Use Meaningful Use Diagnoses (Choose all that apply): None applicable Ischemic Stroke Statin Dosing Therapy Reference: STATIN DOSE THERAPY REFERENCE: * Patients > 75 years receive moderate or high dose statin therapy. * Patients 75 years or YOUNGER should receive HIGH intensity statin dose unless contraindicated. You will be required to document reason for non-treatment if statin daily dose does not meet guidelines. HIGH DOSE STATIN THERAPY DAILY Atorvastatin > than or = to 40 mg Rosuvastatin > than or = to 20 mg Amlodipine + Atorvastatin > than or = to 2.5/40 mg Ezetimibe + Simvastatin 10/80 mg Simvastatin 80mg Discharge Plan Admission Admit Date/Time: 07/11/24 22:22 Primary Reason for Your Visit: Prosthetic knee infection left leg Attending Provider: Jasson Omalley Primary Care Provider: Warner Major Consulting Providers: Irene Rogers; Dedrick Taylor; Luis Angel Winters Instructions Additional Instructions / Restrictions: Wear knee immobilizer at all times with no flexion until 2-week appointment at Dr. Taylor's office. You may take Dulcolax 10 mg daily as needed for constipation-or MiraLAX 17 g once or twice a day as needed for constipation Wear OLGA hose for 2 weeks postop removing at bedtime Discharge Orders/Prescriptions Prescriptions: New vancomycin 1.5 gram recon soln 1.5 g IV Q12H 40 Days Rx Instructions: stop date 08/23/24. Dx: knee prosthetic joint infection. Weekly bmp, cbc, esr, and vanc trough. Fax to [phone]. Routine picc care per protocol. metformin 500 mg Tablet 500 mg PO BIDCM Qty: 60 0RF acetaminophen 500 mg Tablet 1,000 mg PO Q8 Qty: 0 0RF aspirin 81 mg Tablet,Chewable 81 mg PO BIDCM Qty: 0 0RF oxycodone 5 mg Tablet 5 - 10 mg PO Q4H PRN PRN (Reason: Pain Score 4-10) 7 Days Qty: 20 0RF pantoprazole [Protonix] 40 mg tablet,delayed release (DR/EC) 40 mg PO DAILY Qty: 30 0RF Rx Instructions: Take for 30 days while taking aspirin 81 mg twice a day Continued diltiazem HCl 240 mg capsule,extended release 24hr 240 mg PO DAILY escitalopram oxalate 10 mg tablet 20 mg PO DAILY diphenhydramine-acetaminophen 25-500 mg-mg/mL solution PO .HS PRN (Reason: pain ) Discontinued metformin 500 mg tablet extended release 24 hr 500 mg PO DAILY amoxicillin-pot clavulanate [Augmentin] 1 tab PO Q12H Referrals / Follow Up: Warner Major PA-C [Primary Care Provider] - 07/22/24 1:00 pm (For picc dressing change and labs. You will need to schedule for weekly visits after this one. ) Dedrick Taylor MD [Med Staff - Active Staff] - See Referral Note (In 2 weeks) Disposition Disposition (needs filled in before D/C Order can be placed): Home Health Service Charges/Coding Visit Charges Inpatient E&M: 54709 Disch Hosp >30min
[2024-07-15 13:20] VITALS: BP 144/75; PULSE 67; RESP 18; TEMP 36.7; O2SAT 97
== END 2024-07-15 14:01 | disposition home health service (06) | DRG 464 ==
LOC: ED 20:43 → MS3 22:28
PROVIDERS: Physician Assistant; Specialist; Admitting Provider Internal Medicine; Emergency Provider Emergency Medicine; PCP Physician Assistant; Referring Provider Internal Medicine; Visit Provider Internal Medicine
PROC: 0SPD09Z Removal of Liner from Left Knee Joint, Open Approach (ICD-10-PCS; CPT 27486; principal; 2024-07-12 12:00)
DX: T84.54XA Infection and inflammatory reaction due to internal left knee prosthesis, initial encounter (principal); T81.33XA Disruption of traumatic injury wound repair, initial encounter; F39 Unspecified mood [affective] disorder; I10 Essential (primary) hypertension; W19.XXXA Unspecified fall, initial encounter; T84.84XA Pain due to internal orthopedic prosthetic devices, implants and grafts, initial encounter; Z79.2 Long term (current) use of antibiotics; R73.03 Prediabetes; Z96.652 Presence of left artificial knee joint; Y79.2 Prosthetic and other implants, materials and accessory orthopedic devices associated with adverse incidents; B95.62 Methicillin resistant Staphylococcus aureus infection as the cause of diseases classified elsewhere; Z99.89 Dependence on other enabling machines and devices; Z79.84 Long term (current) use of oral hypoglycemic drugs; Z79.899 Other long term (current) drug therapy
CPT/HCPCS: 36415; 36569; 80048; 80053; 80202; 82248; 83605; 83735; 84100; 84443; 85025; 85027; 85610; 85652; 86140; 87015; 87040; 87070; 87075; 87102; 87116; 87176; 87205; 87206; 97116; 97162; 97165; 97535; 99284; C1776; A4216; J2405

== ENCOUNTER 2024-07-26 18:42 | Emergency (ER) | payer OTHER, SELFPAY ==
[2024-07-26] VITALS (7 sets, daily range): BP systolic 120–206; BP diastolic 69–152; PULSE 68–82; RESP 16; TEMP 37.1–37.2; O2SAT 96–98; BMI 33.0
--- NOTE | 2024-07-26 19:02 | EX.ED.DYSGE1 ---
HPI <VERA Parker - Last Filed: 07/26/24 21:31> History of Present Illness Chief Complaint: Fever Narrative Narrative: 60-year-old male with past medical history of hypertension, prediabetes, left knee infection on PICC line antibiotics presents with a fever. He had a left knee replacement 12 years ago. He had surgery on 05/29/2024 to replace a spacer component. He fell and had traumatic wound dehiscence and had surgery on 06/12 for washout and repeat spacer exchange. He developed a postoperative infection that failed oral antibiotics and was admitted on 07/11/2024 for washout and repeat spacer exchange with Dr. Taylor. He went home with a right upper extremity PICC line receiving vancomycin twice a day. Last night he developed fever 103 ?F. He saw his primary care doctor this morning who provide no other source of infection. When his fever spiked up again to 102 ?F this afternoon both his PCP and the infectious disease physician recommended he come in for blood cultures. He states his NEST knee is healing well after the most recent surgery and he actually saw Dr. Taylor in the office yesterday states things look fine. PFSH <VERA Parker - Last Filed: 07/26/24 21:31> [facility] Medical History Wears partial dentures Open wound Non-smoker CPAP (continuous positive airway pressure) dependence Sleep apnea Hypertension Home Medications ?Medication ?Instructions ?Recorded ?Last Taken ?Type diltiazem HCl 240 mg 240 mg PO DAILY blood pressure 06/12/24 07/11/24 History capsule,extended release 24 hr escitalopram oxalate 10 mg tablet 20 mg PO DAILY antidepressant 06/12/24 07/11/24 History diphenhydramine 25 ml PO .HS PRN pain 07/11/24 07/10/24 History mg-acetaminophen 500 mg/15 mL oral solution vancomycin 1.5 gram intravenous 1.5 g IV Q12H 40 days 07/14/24 Unknown Rx solution acetaminophen 500 mg tablet 1,000 mg (2 x 500 mg) PO Q8 #0 tabs 07/15/24 Unknown Rx aspirin 81 mg chewable tablet 81 mg PO BIDCM #0 tabs 07/15/24 Unknown Rx metformin 500 mg tablet 500 mg PO BIDCM #60 tabs 07/15/24 Unknown Rx oxycodone 5 mg tablet 5 - 10 mg (1 - 2 x 5 mg) PO Q4H 07/15/24 Unknown Rx PRN PRN Pain Score 4-10 7 days #20 tabs pantoprazole 40 mg tablet,delayed 40 mg PO DAILY #30 tabs 07/15/24 Unknown Rx release (Protonix) Allergy/AdvReac Type Severity Reaction Status Date / Time No Known Allergies Allergy Verified 07/26/24 18:46 Family History no significant family his Surgical History History of revision of total replacement of left knee joint S/P knee replacement Social History Smoking Status: Never smoker EXAM <VERA Parker - Last Filed: 07/26/24 21:31> Physical Exam Const Vital Signs: 07/26/24 18:43 07/26/24 18:46 07/26/24 18:51 Temperature 98.9 F 98.9 F Temperature Source Oral Oral Pulse Rate 82 76 Respiratory Rate 16 16 Respiratory Effort Normal Non-Labored Respiratory Pattern Normal Blood Pressure 206/152 H 123/69 H Blood Pressure Mean 170 87 Pulse Ox 96 98 Oxygen Delivery Method Room Air Room Air 07/26/24 19:46 07/26/24 19:57 07/26/24 20:01 Temperature 98.9 F 98.7 F Temperature Source Oral Oral Pulse Rate 77 77 Respiratory Rate 16 16 Respiratory Effort Respiratory Pattern Blood Pressure 120/69 120/69 120/69 Blood Pressure Mean 86 86 86 Pulse Ox 96 97 Oxygen Delivery Method Room Air Room Air <Dr. Andrea Schulz MD - Last Filed: 07/26/24 21:49> Physical Exam Const Vital Signs: 07/26/24 18:43 07/26/24 18:46 07/26/24 18:51 Temperature 98.9 F 98.9 F Temperature Source Oral Oral Pulse Rate 82 76 Respiratory Rate 16 16 Respiratory Effort Normal Non-Labored Respiratory Pattern Normal Blood Pressure 206/152 H 123/69 H Blood Pressure Mean 170 87 Pulse Ox 96 98 Oxygen Delivery Method Room Air Room Air 07/26/24 19:46 07/26/24 19:57 07/26/24 20:01 Temperature 98.9 F 98.7 F Temperature Source Oral Oral Pulse Rate 77 77 Respiratory Rate 16 16 Respiratory Effort Respiratory Pattern Blood Pressure 120/69 120/69 120/69 Blood Pressure Mean 86 86 86 Pulse Ox 96 97 Oxygen Delivery Method Room Air Room Air [facility] <VERA Parker - Last Filed: 07/26/24 21:31> [facility] Narrative Medical decision making narrative: History gathered from: Patient and spouse Consults: Infectious disease Differential includes fever from PICC line infection, left knee infection, he has no symptoms of viral infection or URI so I did not pursue testing for this. Patient developed a fever, chills and rigors last night. He is receiving vancomycin through his PICC line for postop left knee infection. He appears well and nontoxic. Vital signs notable for hypertension but otherwise normal. He took Tylenol 2 hours prior to arrival and temp is 98.9 ?F. The midline incision on the left knee has overlying Steri-Strips. There is swelling and erythema which she states has been stable since the surgery. However there is some patchy erythema and warmth on the medial knee which when I pointed out he thinks is. There is no fluctuance or crepitus. No drainage or odor. Neurovascularly intact. WBC is 4.4. Lactic less than 1. Procalcitonin is elevated at 0.15. 2 blood cultures were drawn off the peripheral ID. Nursing staff attempted to draw a blood culture culture from the PICC line but states it flushed easily but would not draw blood. After results I contacted the on-call ID physician and with Dr. Winters's group. He advised starting tenecteplase and the PICC line and then attempt another blood culture. He agreed the patient can be discharged home and follow-up. Patient advised to take Tylenol and closely monitor both his PICC line and his left knee and return if symptoms worsen. I have personally performed a face to face assessment of the patient and have reviewed the ODILON Note. I performed a substantive portion of the visit including all aspects of the following. My stokes findings include: History is remarkable for infection of the right knee requiring washout. He is followed by Dr. Taylor and ID. He is presently on IV vancomycin. He had a temperature greater than 102 last evening with shaking chills. He was seen yesterday afternoon by Dr. Taylor and he felt the wound looked good. spoke with physician on-call for Dr. Winters for infectious disease. Recommended going to the ER for blood work and blood cultures. Patient had elevated temperature today as well. He took Tylenol at 1630 and may be reason for his normal temperature. He denies headache, visual, ocular auditory symptoms. He denies upper respiratory tract infectious symptoms. He denies GI symptoms. He denies symptoms. Exam is remarkable for an elevated blood pressure. He appears in no distress. HEENT is grossly unremarkable. Lungs are good auscultation. Heart is regular. Rate is normal. Examination of his left knee reveals Steri-Strips to be in place. There is erythema medial aspect of the knee. There is some slight erythema noted on the lateral medial side of the incision. Patient states that was noted prior to the fever. The redness that is noted medially is new. There is no induration. There is no fluctuance. There is no popliteal or inguinal lymphadenopathy. There is no lymphangitis. Medical Decision Making will obtain blood cultures. And appropriate blood work. Will discuss case with consultants. was concerned he had a infection with his teeth. His partial plate was removed. There is no evidence of infection. Patient does not have good dentition. There are no gingival or buccal or lingular lesions noted. Other additions or changes: [None] Lab Data Labs: Laboratory Results - last 24 hr 07/26/24 19:18 WBC 4.4 RBC 3.67 L Hgb 9.7 L Hct 30.5 L MCV 83.1 MCH 26.4 L MCHC 31.8 L RDW Std Deviation 46.2 H RDW Coeff of Jr 15.2 H Plt Count 315 MPV 9.1 Immature Gran % (Auto) 0.000 Neut % (Auto) 63.0 Lymph % (Auto) 22.5 Burke % (Auto) 12.4 H Eos % (Auto) 1.4 Baso % (Auto) 0.7 Absolute Neuts (auto) 2.8 Absolute Lymphs (auto) 0.98 Nucleated RBC % 0 Sodium 135 Potassium 3.7 Chloride 99 Carbon Dioxide 22.6 Anion Gap 13 BUN 17 Creatinine 1.17 Estim Creat Clear Calc 73.60 Est GFR (MDRD) Non-Af 68 BUN/Creatinine Ratio 14.6 Glucose 123 H Lactic Acid < 1.0 Calcium 8.4 Procalcitonin 0.15 H <Dr. Andrea Schulz MD - Last Filed: 07/26/24 21:49> MDM MDM Narrative Medical decision making narrative: History gathered from: Patient and spouse Consults: Infectious disease Differential includes fever from PICC line infection, left knee infection, he has no symptoms of viral infection or URI so I did not pursue testing for this. Patient developed a fever, chills and rigors last night. He is receiving vancomycin through his PICC line for postop left knee infection. He appears well and nontoxic. Vital signs notable for hypertension but otherwise normal. He took Tylenol 2 hours prior to arrival and temp is 98.9 ?F. The midline incision on the left knee has overlying Steri-Strips. There is swelling and erythema which she states has been stable since the surgery. However there is some patchy erythema and warmth on the medial knee which when I pointed out he thinks is. There is no fluctuance or crepitus. No drainage or odor. Neurovascularly intact. WBC is 4.4. Lactic less than 1. Procalcitonin is elevated at 0.15. 2 blood cultures were drawn off the peripheral ID. Nursing staff attempted to draw a blood culture culture from the PICC line but states it flushed easily but would not draw blood. After results I contacted the on-call ID physician and with Dr. Winters's group. He advised starting tenecteplase and the PICC line and then attempt another blood culture. He agreed the patient can be discharged home and follow-up. Patient advised to take Tylenol and closely monitor both his PICC line and his left knee and return if symptoms worsen. I have personally performed a face to face assessment of the patient and have reviewed the ODILON Note. I performed a substantive portion of the visit including all aspects of the following. My stokes findings include: History is remarkable for infection of the right knee requiring washout. He is followed by Dr. Taylor and ID. He is presently on IV vancomycin. He had a temperature greater than 102 last evening with shaking chills. He was seen yesterday afternoon by Dr. Taylor and he felt the wound looked good. spoke with physician on-call for Dr. Winters for infectious disease. Recommended going to the ER for blood work and blood cultures. Patient had elevated temperature today as well. He took Tylenol at 1630 and may be reason for his normal temperature. He denies headache, visual, ocular auditory symptoms. He denies upper respiratory tract infectious symptoms. He denies GI symptoms. He denies symptoms. Exam is remarkable for an elevated blood pressure. He appears in no distress. HEENT is grossly unremarkable. Lungs are good auscultation. Heart is regular. Rate is normal. Examination of his left knee reveals Steri-Strips to be in place. There is erythema medial aspect of the knee. There is some slight erythema noted on the lateral medial side of the incision. Patient states that was noted prior to the fever. The redness that is noted medially is new. There is no induration. There is no fluctuance. There is no popliteal or inguinal lymphadenopathy. There is no lymphangitis. Medical Decision Making will obtain blood cultures. And appropriate blood work. Will discuss case with consultants. was concerned he had a infection with his teeth. His partial plate was removed. There is no evidence of infection. Patient does not have good dentition. There are no gingival or buccal or lingular lesions noted. Other additions or changes: Case was discussed with infectious disease on-call. Requested at a place because unable to draw blood back from the PICC line. Requested 1 blood culture from PICC line. After blood has been drawn from PICC line patient be discharged to home. Lab Data Labs: Laboratory Results - last 24 hr 07/26/24 19:18 WBC 4.4 RBC 3.67 L Hgb 9.7 L Hct 30.5 L MCV 83.1 MCH 26.4 L MCHC 31.8 L RDW Std Deviation 46.2 H RDW Coeff of Jr 15.2 H Plt Count 315 MPV 9.1 Immature Gran % (Auto) 0.000 Neut % (Auto) 63.0 Lymph % (Auto) 22.5 Burke % (Auto) 12.4 H Eos % (Auto) 1.4 Baso % (Auto) 0.7 Absolute Neuts (auto) 2.8 Absolute Lymphs (auto) 0.98 Nucleated RBC % 0 Sodium 135 Potassium 3.7 Chloride 99 Carbon Dioxide 22.6 Anion Gap 13 BUN 17 Creatinine 1.17 Estim Creat Clear Calc 73.60 Est GFR (MDRD) Non-Af 68 BUN/Creatinine Ratio 14.6 Glucose 123 H Lactic Acid < 1.0 Calcium 8.4 Procalcitonin 0.15 H Discharge Plan Triage Chief Complaint: Fever ED Midlevel Provider: Melania Esqueda ED Provider: Andrea Schulz Dx/Rx/DC Orders Clinical Impression: Infection of left knee, Fever, History of gastroesophageal reflux (GERD), History of type 2 diabetes mellitus, Anemia Instructions: ED FUO Adult, ED Fever Control (Adult) Prescriptions: No Action diltiazem HCl 240 mg capsule,extended release 24hr 240 mg PO DAILY escitalopram oxalate 10 mg tablet 20 mg PO DAILY diphenhydramine-acetaminophen 25-500 mg-mg/mL solution PO .HS PRN (Reason: pain ) vancomycin 1.5 gram recon soln 1.5 g IV Q12H 40 Days Rx Instructions: stop date 08/23/24. Dx: knee prosthetic joint infection. Weekly bmp, cbc, esr, and vanc trough. Fax to [phone]. Routine picc care per protocol. metformin 500 mg Tablet 500 mg PO BIDCM Qty: 60 0RF acetaminophen 500 mg Tablet 1,000 mg PO Q8 Qty: 0 0RF aspirin 81 mg Tablet,Chewable 81 mg PO BIDCM Qty: 0 0RF oxycodone 5 mg Tablet 5 - 10 mg PO Q4H PRN PRN (Reason: Pain Score 4-10) 7 Days Qty: 20 0RF pantoprazole [Protonix] 40 mg tablet,delayed release (DR/EC) 40 mg PO DAILY Qty: 30 0RF Rx Instructions: Take for 30 days while taking aspirin 81 mg twice a day Primary Care Provider: Warner Major Referrals: Warner Major PA-C [Primary Care Provider] - Activity Restrictions/Additional Instructions: Take Tylenol every 6 hours as needed to treat fever. Monitor your PICC line in your left knee closely and if you feel you are developing redness, swelling, or worsening symptoms come back to the emergency room. Otherwise follow-up with your orthopedic and infectious disease doctors. Print Language: [place] Citizen Disposition Disposition: Home, Self Care
[2024-07-26 19:35] LABS: Absolute Lymphocyte Count 0.98 X10^3/uL (0.83-4.51); Absolute Neutrophil Count 2.8 X10^3/uL (2.0-7.7); Basophil# 0.03 X10^3/uL; Basophil% 0.7 % (0-1); Eosinophil# 0.06 X10^3/uL; Eosinophils% 1.4 % (0-5); Hematocrit 30.5 % (40-54); Hemoglobin 9.7 g/dL (13.0-16.5); Lymphocyte # 0.98 X10^3/ul (0.83-4.51); Lymphocyte % 22.5 % (19-41); Mean Corp Hgb Conc 31.8 g/dL (32-36); Mean Corpuscular Hgb 26.4 pg (27.0-32.0); Mean Corpuscular Volume 83.1 fL (80-94); Mean Platelet Vol. 9.1 fl (6.2-12.0); Monocyte# 0.54 X10^3/uL; Monocyte% 12.4 % (0-10); NRBC Flagged by Analyzer 0 % (0-5); Neutrophil # 2.75 X10^3/uL (2.7-7.7); Platelet Count 315 K/mm3 (150-450); RBC Distribution Width CV 15.2 % (11.6-14.6); RBC Distribution Width SD 46.2 fl (35.1-43.9); Red Blood Count 3.67 M/mm3 (4.6-6.2); White Blood Count 4.4 K/mm3 (4.4-11.0)
[2024-07-26 20:05] LABS: Anion Gap 13 (5-15); BUN 17 mg/dL (4-19); BUN/Creat Ratio 14.6 RATIO (10-20); Calcium,Total 8.4 mg/dL (7.6-11.0); Carbon Dioxide 22.6 mmol/L (21.0-32.0); Chloride 99 mmol/L (98-108); Creatinine, Serum 1.17 mg/dL (0.70-1.20); EST Glomerular Filtration Rate 68 (>60); Glucose 123 mg/dL (70-99); Potassium 3.7 mmol/L (3.3-5.1); Procalcitonin 0.15 ng/mL (<=0.10); Sodium Level 135 mmol/L (133-145)
[2024-07-26 20:14] LABS: Lactic Acid < 1.0 mmol/L (0.0-2.0)
[2024-07-26] MEDS: Alteplase 2 MG/2 ML Vial IV (21:35)
--- NOTE | 2024-07-26 22:06 | ED.RN ---
alteplase injection successful. blood drawn for blood cultures. line flushed and recapped.
== END 2024-07-26 22:15 | disposition home or self-care (01) ==
PROVIDERS: Physician Assistant; Emergency Provider Emergency Medicine; PCP Physician Assistant; Visit Provider Emergency Medicine
DX: T81.40XA Infection following a procedure, unspecified, initial encounter (principal); E11.9 Type 2 diabetes mellitus without complications; X58.XXXA Exposure to other specified factors, initial encounter; D64.9 Anemia, unspecified; K21.9 Gastro-esophageal reflux disease without esophagitis; Z79.84 Long term (current) use of oral hypoglycemic drugs; Z79.899 Other long term (current) drug therapy
CPT/HCPCS: 80048; 83605; 84145; 85025; 87040; 96374; 99283; J2997; A4216